=== PATIENT | male | born 1955 | race Caucasian/White ===

== ENCOUNTER 2020-01-05 07:01 | Day surgery (SDC) | payer BC, OTHER ==
[2020-01-02 15:29] LABS: Absolute Lymphocytes (CBC) 1.3 K/uL (0.7-4.9); Basophils % 0.4 % (0-1.3); Hematocrit 43.4 % (39.6-49.0); Lymphocytes % 18.8 % (15.3-44.8); MPV 8.5 fL (7.6-11.3); RBC Red Blood Cell Count 4.93 M/uL (4.33-5.43)
[2020-01-02 15:32] LABS: Protime INR 1.11
--- NOTE | 2020-01-02 15:32 | RAD REPORT ---
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 COMPARISON: CHEST SINGLE VIEW dated 07/10/2012; CHEST SINGLE VIEW dated 07/03/2012 FINDINGS: A small nodule is present in the left mid lung, measuring approximately 1 cm in new since 2012 comparative study. The lungs are clear of acute infiltrate. The heart is normal in size. No disp laced fractures. IMPRESSION: 1 cm nodule in the left mid lung is noted, new since 2012. CT chest followup is recommen ded.
[2020-01-02 15:44] LABS: Potassium 3.4 mmol/L (3.5-5.1)
[2020-01-05] MEDS ORDERED: HEPA 1000U/500MLS 2,000 UNIT/1,000 ML BAG IV ONE (07:15)
[2020-01-05] MEDS ORDERED: LIDOCAINE 1% 20 ML MDV ONE (07:15)
[2020-01-05] MEDS ORDERED: NA CHLORIDE 0.9% 500 ML ONE (07:22)
[2020-01-05] MEDS ORDERED: ATROPINE SULF 1 MG/10 ML SYR IV ONE (07:51)
[2020-01-05] MEDS ORDERED: MIDAZOLAM HCL 2 MG/2 ML INJ ONE ×2 (07:51→08:05)
[2020-01-05] MEDS ORDERED: NITROGLYCERIN 100 MCG/ML SYR (for cath lab use only) IV ONE (07:51)
[2020-01-05] MEDS ORDERED: NICARDIPINE HCL 25 MG/10 ML IV ONE (07:51)
[2020-01-05] MEDS ORDERED: HEPARIN 5000 UNIT/ML 1 ML VIAL ONE (07:51)
[2020-01-05] MEDS ORDERED: FENTANYL CITR 100 MCG/2 ML ONE (07:51)
[2020-01-05] MEDS ORDERED: NA CHLORIDE 0.9% 50 ML ONE (07:52)
[2020-01-05] MEDS ORDERED: NITROGLYCERIN/D5W 25 MG/250 ML BTL IV ONE (07:52)
[2020-01-05] MEDS ORDERED: ASPIRIN 81 MG CHEWABLE TABLET ONE (08:35)
[2020-01-05] MEDS ORDERED: PRASUGREL (EFFIENT) 10 MG TAB ONE (09:00)
[2020-01-05] MEDS ORDERED: ZOLPIDEM TARTRATE 5 MG TABLET PO PRN (09:05)
[2020-01-05] MEDS ORDERED: ACETAMINOPHEN 500 MG TAB PO PRN (09:06)
[2020-01-05] MEDS ORDERED: D50W 25 GM/50 ML SYRINGE/VIAL IV PRN (10:53)
[2020-01-05] MEDS ORDERED: GLUCAGON 1 MG/VIAL IM PRN (10:53)
[2020-01-05] MEDS: INSULIN -REGULAR HUMAN 50 UNIT/0.5 ML ML SQ SCH ×3 (11:30→21:11)
--- NOTE | 2020-01-05 12:05 | OP ---
Surgeon: Kyler Vazquez MD Identification: 64-year-old man. Primary Care Physician: Tavon Marino M.D. Procedure: Left heart catheterization with coronary angioplasty and a stent of the distal LAD for ex ercise-induced ventricular tachycardia. Procedure Findings: The patient had diffuse mild lumen irregularities throughout his coronary tree, but the distal LAD had an 80% stenosis. The left ventricular ejection fraction was normal. Left zaynab tricular end-diastolic pressure is slightly high at 19 mmHg and his systolic pressure segmental wall motion were all normal. After the stents, the 80% lesion was reduced to 0% stenosis. The stent was a 2.75 x 16 Synergy inflated to 12 atmospheres. Procedure In Detail: The patient was brought to the cardiac cleaner laboratory equipment in a fasting state, sedated wit h Versed and fentanyl, prepared and draped in usual sterile fashion. Informed consent had been obtai maria e. Right radial approach was used. 1% lidocaine was used to anesthetize the skin around the arter y. We entered the artery with a 21-gauge needle, cannulated with a 0.021 inch diameter guidewire and then placed a 5/6-[place] Terumo radial sheath. As soon as the sheath was in, the introducer and jonathan dewire were removed. We gave a radial cocktail consisting of nicardipine, heparin, and nitroglycerin . We used a TIG catheter and advanced it to the ascending aorta using a short radius J-tip Glidewire and fluoroscopy. We used a TIG catheter to angiogram right and left coronary, left ventricle. At t he end of the diagnostic procedure, decision was made to put a stent in, so we gave Angiomax, demonst rated activated clotting time of more than 400 seconds. We used an exchange length J-wire to remove the TIG catheter and advanced an XB LAD 3.5 with side holes into the ascending aorta. This engaged t he left main ostium nicely and gave us excellent support. We crossed the lesion using a [place] 0.014 inch coronary wire, advanced around the apex of the heart, staying in the LAD lumen of course. We p arked the distal tip there and were then able to advance our stent a rapid exchange type stent, a Syn ergy 2.75 mm diameter, 16 mm long. We advanced to the lesion, demonstrated its position, inflated it to 12 atmospheres, did 2 inflations. We withdrew the balloon catheter leaving the stent in place, t ook a picture. The angiographic result was excellent. No evidence of distal thrombus or dissection. We removed the wire, took pictures in orthogonal views and then removed the guide catheter. We flu shed the sheath, demonstrated good arterial waveforms when connected the sheath side port. Removed t he sheath and closed the arteriotomy using a large TR band. Estimated Blood Loss: 10 mL. Brand Representative: Claudia Kim. Complications: None. CARLOS/MEGGAN Voice ID: [id number] Report ID: [id number]
[2020-01-05 12:09] VITALS: O2SAT 99
[2020-01-05 14:09] VITALS: BMI 28.7
[2020-01-05] MEDS ORDERED: NA CHLORIDE 0.9% 1,000 ML IV SCH (15:00)
[2020-01-05] MEDS ORDERED: ATORVASTATIN 80 MG TAB PO SCH (21:00)
[2020-01-06 05:00] LABS: Hematocrit 39.3 % (39.6-49.0); MPV 8.7 fL (7.6-11.3)
[2020-01-06 05:08] LABS: BUN Blood Urea Nitrogen 15 mg/dL (7-18); Bicarbonate 29 mmol/L (21-32); Glucose Level 230 mg/dL (74-106); Potassium 3.7 mmol/L (3.5-5.1); Sodium Level 140 mmol/L (136-145)
[2020-01-06] MEDS ORDERED: METOPROLOL XL 50 MG TAB PO SCH (06:00)
[2020-01-06] MEDS: INSULIN -REGULAR HUMAN 50 UNIT/0.5 ML ML SQ SCH (08:52)
[2020-01-06] MEDS ORDERED: LOSARTAN POTASSIUM 50 MG TABLET PO SCH (09:00)
[2020-01-06] MEDS ORDERED: ASPIRIN EC 81 MG TAB PO SCH (09:00)
[2020-01-06] MEDS ORDERED: CLOPIDOGREL 75 MG TABLET PO SCH (09:00)
[2020-01-06 10:40] VITALS: BP 178/99; TEMP 97.5
--- NOTE | 2020-01-06 12:57 | PN ---
Date of Progress Note: 01/06/2020 Mr. Monreal is a 64-year-old white male, was admitted as an outpatient for a heart catheterization [facility] of abnormal stress test and ventricular tachycardia. He is a patient of Dr. Marino. Has multipl e cardiac risk factors. Dr. Vazquez did a catheterization and performed a mid LAD stent successfully yesterday. Overnight, patient has no complaint. His catheterization entry site looks great. He has no telemetry issue. No chest pain. We will send him home today on Toprol, Plavix, statin, and aspi rin and he can go home today and follow up with us in the next week or 2. We will probably do a stre ss test on him rather soon to make sure that the ventricular tachycardia is actually resolved. Other jaramillo, he may have to have an EP referral. WARREN/MEGGAN Voice ID: [id number] Report ID: [id number]
== END 2020-01-06 10:17 | disposition home or self-care (01) ==
LOC: CCL 07:01 → 2ND 12:46 → CCL 01-06 10:17
PROVIDERS: ATTEND Internal Medicine
DX: I47.2 Ventricular tachycardia (principal); I25.10 Atherosclerotic heart disease of native coronary artery without angina pectoris; I10 Essential (primary) hypertension; E78.5 Hyperlipidemia, unspecified; E11.9 Type 2 diabetes mellitus without complications; Z82.49 Family history of ischemic heart disease and other diseases of the circulatory system
CPT/HCPCS: 85025; 80048 ×2; 36415 ×2; 85610; 82947 ×5; 85347; 85730; 85027; 71046; 92928; 93458; C1893; C1725; C1877; J1644; J2250 ×2; J3010; J0583; J7040

== ENCOUNTER 2021-07-26 19:56 | Emergency (ER) | payer BC ==
--- NOTE | 2021-07-26 21:28 | ER ---
Nurse's Notes [facility] Name: Ludin Monreal Age: 65 yrs Sex: Male : 1955 Arrival Date: 07/26/2021 Time: 19:57 Bed 10 Private MD: Diagnosis: Retention of urine, unspecified-FRIEDMAN Presentation: 07/26 20:19 Chief complaint: Patient states: Pt states he has an indwelling catheter from a recent wg surgery that is supposed to be removed tomorrow. This evening it sprung a leak and needs a new leg bag to hold him over until tomorrow. No other complaints. Coronavirus screen: Vaccine status: Patient reports receiving the 2nd dose of the covid vaccine. Date February 03, 2021 At this time, the client does not indicate any symptoms associated with coronavirus-19. Ebola Screen: Patient negative for fever greater than or equal to 101.5 degrees Fahrenheit, and additional compatible Ebola Virus Disease symptoms Patient denies exposure to infectious person. Patient denies travel to an Ebola-affected area in the 21 days before illness onset. No symptoms or risks identified at this time. Initial Sepsis Screen: Does the patient meet any 2 criteria? No. Patient's initial sepsis screen is negative. Does the patient have a suspected source of infection? No. Patient's initial sepsis screen is negative. Risk Assessment: Do you want to hurt yourself or someone else? Patient reports no desire to harm self or others. Onset of symptoms was July 26, 2021 at 09:00. 20:19 Method Of Arrival: Ambulatory 20:19 Acuity: TERRY 4 wg Triage Assessment: 20:19 General: Appears in no apparent distress. comfortable, well groomed, Behavior is calm, wg cooperative, appropriate for age. Pain: Denies pain. - Immunization history:: Adult Immunizations up to date. - Social history:: Smoking status: Patient denies any tobacco usage or history of. - Family history:: not pertinent. Screenin:58 Abuse screen: Denies threats or abuse. Denies injuries from another. Nutritional bc5 screening: No deficits noted. Tuberculosis screening: No symptoms or risk factors identified. Fall Risk None identified. No fall in past 12 months (0 pts). No secondary diagnosis (0 pts). No IV (0 pts). Ambulatory Aid- None/Bed Rest/Nurse Assist (0 pts). Gait- Normal/Bed Rest/Wheelchair (0 pts) Mental Status- Oriented to own ability (0 pts). Total Scott Fall Scale indicates No Risk (0-24 pts). Vital Signs: 20:19 BP 128 / 98; Pulse 82; Resp 18; Temp 98.4; Pulse Ox 100% on R/A; Weight 90.72 kg; wg Height 5 ft. 10 in. (177.80 cm); Pain 0/10; 20:19 Body Mass Index 28.70 (90.72 kg, 177.80 cm) ED Course: 19:57 Patient arrived in ED. cf2 20:21 Triage completed. 20:22 Arm band placed on. 20:58 No provider procedures requiring assistance completed. Patient did not have IV access bc5 during this emergency room visit. 20:59 Patient has correct armband on for positive identification. Call light in reach. bc5 21:06 Frank Thompson MD is Attending Physician. [facility] 21:18 Vera Fernandes, RN is Primary Nurse. bc5 21:18 Pateint arrived with Friedman and leg bag, leg bag clamp broke and was leaking, leg bag bc5 replaced using sterile technique. 21:27 Timmy Ramsey MD is Referral Physician. [facility] Administered Medications: No medications were administered Outcome: 21:28 Discharge ordered by . [facility] 21:42 Condition: stable bc5 21:42 Discharge instructions given to patient, Instructed on discharge instructions, follow up and referral plans. 21:42 Discharged to home ambulatory. bc5 21:43 Patient left the ED. bc5 Signatures: Frank Thompson MD MD cha Frazier, Celesta 2 Kemar Benton RN Vera Fernandes, CLARY RN bc5
--- NOTE | 2021-07-26 21:28 | EDPHYS ---
Physician Documentation [facility] Name: Ludin Monreal Age: 65 yrs Sex: Male : 1955 Arrival Date: 07/26/2021 Time: 19:57 Bed 10 Private MD: ED Physician Frank Thompson HPI: 07/26 21:22 This 65 yrs old Male presents to ER via Ambulatory with complaints of Problem jose With Urinary Catheter, BAG IS LEAKING. 21:22 The patient presents with a Friedman catheter problem, NEEDS A BAG. Onset: The jose symptoms/episode began/occurred yesterday. Modifying factors: The symptoms are alleviated by nothing, the symptoms are aggravated by nothing. Associated signs and symptoms: The patient has no apparent associated signs or symptoms. The patient has not experienced similar symptoms in the past. - Immunization history:: Adult Immunizations up to date. - Social history:: Smoking status: Patient denies any tobacco usage or history of. - Family history:: not pertinent. ROS: 21:23 Constitutional: Negative for fever, chills, and weight loss, Eyes: Negative for injury, jose pain, redness, and discharge, ENT: Negative for injury, pain, and discharge, Neck: Negative for injury, pain, and swelling, Cardiovascular: Negative for chest pain, palpitations, and edema, Respiratory: Negative for shortness of breath, cough, wheezing, and pleuritic chest pain, Abdomen/GI: Negative for abdominal pain, nausea, vomiting, diarrhea, and constipation, Back: Negative for injury and pain, MS/Extremity: Negative for injury and deformity, Skin: Negative for injury, rash, and discoloration, Neuro: Negative for headache, weakness, numbness, tingling, and seizure. 21:23 : Positive for WITH FRIEDMAN, NEEDS NEW BACK. Exam: 21:23 Constitutional: This is a well developed, well nourished patient who is awake, alert, jose and in no acute distress. Head/Face: Normocephalic, atraumatic. Eyes: Pupils equal round and reactive to light, extra-ocular motions intact. Lids and lashes normal. Conjunctiva and sclera are non-icteric and not injected. Cornea within normal limits. Periorbital areas with no swelling, redness, or edema. ENT: Nares patent. No nasal discharge, no septal abnormalities noted. Tympanic membranes are normal and external auditory canals are clear. Oropharynx with no redness, swelling, or masses, exudates, or evidence of obstruction, uvula midline. Mucous membranes moist. Neck: Trachea midline, no thyromegaly or masses palpated, and no cervical lymphadenopathy. Supple, full range of motion without nuchal rigidity, or vertebral point tenderness. No Meningismus. Chest/axilla: Normal chest wall appearance and motion. Nontender with no deformity. No lesions are appreciated. Cardiovascular: Regular rate and rhythm with a normal S1 and S2. No gallops, murmurs, or rubs. Normal PMI, no JVD. No pulse deficits. Respiratory: Lungs have equal breath sounds bilaterally, clear to auscultation and percussion. No rales, rhonchi or wheezes noted. No increased work of breathing, no retractions or nasal flaring. Abdomen/GI: Soft, non-tender, with normal bowel sounds. No distension or tympany. No guarding or rebound. No evidence of tenderness throughout. Back: No spinal tenderness. No costovertebral tenderness. Full range of motion. Skin: Warm, dry with normal turgor. Normal color with no rashes, no lesions, and no evidence of cellulitis. MS/ Extremity: Pulses equal, no cyanosis. Neurovascular intact. Full, normal range of motion. Neuro: Awake and alert, GCS 15, oriented to person, place, time, and situation. Cranial nerves II-XII grossly intact. Motor strength 5/5 in all extremities. Sensory grossly intact. Cerebellar exam normal. Normal gait. Psych: Awake, alert, with orientation to person, place and time. Behavior, mood, and affect are within normal limits. 21:23 : CVA tenderness, is absent, Male external genitalia: normal, Bladder: is normal, a friedman is noted. Vital Signs: 20:19 BP 128 / 98; Pulse 82; Resp 18; Temp 98.4; Pulse Ox 100% on R/A; Weight 90.72 kg; wg Height 5 ft. 10 in. (177.80 cm); Pain 0/10; 20:19 Body Mass Index 28.70 (90.72 kg, 177.80 cm) [facility]: 21:06 Patient medically screened. [facility] 21:25 Differential diagnosis: Friedman catheter problem. Data reviewed: vital signs, nurses jose notes. 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 on room air. Counseling: I had a detailed discussion with the patient and/or guardian regarding: the historical points, exam findings, and any diagnostic results supporting the discharge/admit diagnosis, the need for outpatient follow up, for definitive care, a urologist. 07/26 21:06 Order name: Leg Bag; Complete Time: 21:43 jose Administered Medications: No medications were administered Disposition Summary: 07/26/21 21:28 Discharge Ordered Location: Home [facility] Problem: new jose Symptoms: have improved jose Condition: Stable jose Diagnosis - Retention of urine, unspecified - FRIEDMAN jose Followup: jose - With: Private Physician - When: 2 - 3 days - Reason: Recheck today's complaints, Continuance of care, Re-evaluation by your physician Followup: jose - With: Timmy Ramsey MD - When: 2 - 3 days - Reason: Recheck today's complaints, Continuance of care, Re-evaluation by your physician Discharge Instructions: - Discharge Summary Sheet jose - Indwelling Urinary Catheter Care, Adult jose - Acute Urinary Retention, Male jose - Acute Urinary Retention, Male, [id number] jose - Indwelling Urinary Catheter Care, Adult, [id number]-uw-[id number] [facility] Forms: - Medication Reconciliation Form [facility] - Thank You Letter jose - Antibiotic Education jose - Prescription Opioid Use [facility] Signatures: Frank Thompson MD MD cha Gamba, Liam, RN wg
[2021-07-27 00:14] VITALS: BP 128/98; TEMP 98.4; O2SAT 100
== END 2021-07-26 21:43 | disposition home or self-care (01) ==
LOC: ER 19:56
DX: T83.098A Other mechanical complication of other urinary catheter, initial encounter (principal)
CPT/HCPCS: 99281

== ENCOUNTER 2021-10-24 19:39 | Emergency (ER) | payer BC ==
--- OUTSIDE RECORDS SUMMARY | 2021-10-24 19:40 | XMS REPORT | Continuity of Care Document ---
:1955 Author Organization [facility] t Address [address] [place] [address] Care Team Providers Name Role Phone LISA Primary Care Physician Unavailable DARIUS Attending Clinician Unavailable DARIUS Admitting Clinician Unavailable Payers Payer Name Policy Type Policy Number Effective Date Expiration Date S gibran BCBS OS [id number] 2017 00:00:00 POS/PPO/EPO Problems This patient has no known problems. Allergies, Adverse Reactions, Alerts Allergy Allergy Status Severity Reaction(s) Onset Inactive Treating Comm ents Source Name Type Date Date Clinician NO KNOWN Allergy Active [facility] Medications This patient has no known medications. Vital Signs Vital Name Observation Time Observation Value Comments Source HEIGHT 2021-07-14 10:13:00 177.8 cm WEIGHT 2021-07-14 10:13:00 90.5 kg HEIGHT 2021-07-13 10:20:00 177.8 cm WEIGHT 2021-07-13 10:20:00 88.451 kg HEIGHT 2021-07-14 10:13:00 177.8 cm WEIGHT 2021-07-14 10:13:00 90.5 kg HEIGHT 2021-07-13 10:20:00 177.8 cm WEIGHT 2021-07-13 10:20:00 88.451 kg Procedures This patient has no known procedures. Encounters Start End Encounter Admission Attending Care Care Encounter Source Date/Time Date/Time Type Type Clinicians Facility Department ID 2021-08-14 Outpatient ZAHRAA RAMSEY Surgery [id number] [facility] 07:20:36 SHARI 2021-07-13 2021-07-13 Outpatient [facility] [id number] [facility] 00:00:00 00:00:00 Results Test Description Test Time Test Comments Results Result Sourc e Comments TISSUE EXAM 2021-07-07 Surgical Pathology Report 3 14:57:02 Case: [id number] Authorizing Provider: Shari Ramsey MD Collected: 07/14/2021 03:46 PM Ordering Location: [facility] PERIOPERATIVE Received: 07/15/2021 10:03 AM SERVICES Pathologist: Pancho Vazquez MD Specimens: A) - Soft Tissue, Other, Periprostatic fat B) - Urinary Bladder, Left bladder wall margin (suture arreola bladder side) C) - Urinary Bladder, Posterior bladder neck margin D) - Urinary Bladder, Anterior bladder neck margin E) - Prostate, PROSTATE AND SEMINAL VESICLES A. SOFT TISSUE, PERIPROSTATIC FAT: - BENIGN FIBROADIPOSE TISSUE - NO LYMPH NODE PRESENTB. URINARY BLADDER, LEFT BLADDER WALL MARGIN, EXCISION: - BENIGN PROSTATIC GLANDS AND SMOOTH MUSCLE- NEGATIVE FOR MALIGNANCYC. URINARY BLADDER, POSTERIOR BLADDER NECK MARGIN, EXCISION: - BENIGN SMOOTH MUSCLE BUNDLESD. URINARY BLADDER, ANTERIOR BLADDER NECK MARGIN, EXCISION: - BENIGN SMOOTH MUSCLE BUNDLESE. PROSTATE, ROBOTIC-ASSISTED LAPAROSCOPIC RADICAL PROSTATECTOMY: - ADENOCARCINOMA, AVERY 3+4=7, FOCAL EXTRAPROSTATIC EXTENSION, SURGICAL MARGINS NEGATIVE SEMINAL VESICLES, ROBOTIC-ASSISTED LAPAROSCOPIC RADICAL PROSTATECTOMY: - NO PATHOLOGIC DIAGNOSIS Signing Pathologist Direct Phone Line: [phone] signed by Pancho Vazquez MD on 07/28/2021 at 2:57 PMPreliminary result electronically signed by Pancho Vazquez MD on 07/18/2021 at 11:01 AMSections show a single focus of adenocarcinoma in the right peripheral zone in the apical half of the gland. The tumor shows focal extraprostatic extension in the region of the neurovascular bundle but the surgical margins and seminal vesicles are negative for tumor. PROSTATE GLAND: Radical ProstatectomyPROSTATE GLAND: RADICAL PROSTATECTOMY - E8th Edition - Protocol posted: 12/31/2019SPECIMEN Procedure: Radical prostatectomy Prostate Size: Prostate Weight (g): 35 g Prostate Greatest Dimension (Centimeters): 4.2 cm Additional Dimension (Centimeters): 3 cm Additional Dimension (Centimeters): 3 cmTUMOR Histologic Type: Acinar adenocarcinoma Histologic Grade: Grade Group and Wiggins Score: Grade group 2 (Avery Score 3 + 4 = 7) Percentage of Pattern 4: 15 % Intraductal Carcinoma (IDC): Not identified Tumor Quantitation: Estimated percentage of prostate involved by tumor: 15 % Tumor Quantitation: Greatest Dimenion of Dominant Nodule (Millimeters): 15 mm Extraprostatic Extension (EPE): Present, focal Location of Extraprostatic Extension: Right posterolateral (neurovascular bundle) Urinary Bladder Neck Invasion: Not identified Seminal Vesicle Invasion: Not identified Treatment Effect: No known presurgical therapy Lymphovascular Invasion: Not Identified Perineural Invasion: Present MARGINS Margins: Uninvolved by invasive carcinoma : Benign prostate glands present at surgical margin LYMPH NODES Regional Lymph Nodes: No lymph nodes submitted or found PATHOLOGIC STAGE CLASSIFICATION (pTNM, AJCC 8th Edition) Primary Tumor (pT): pT3a Regional Lymph Nodes (pN): pNX ADDITIONAL FINDINGS Additional Findings: High-grade prostatic intraepithelial neoplasia (PIN) Additional Findings: Nodular prostatic hyperplasia SPECIAL STUDIES Ancillary Studies: Not performed 79733 x 1, 91677 x 3, 49418Secgaxur cancerA. Soft tissue, otherB. BladderC. BladderD. BladderE. ProstateGROSS DESCRIPTION:Specimen E: Received is a radical prostatectomy specimen in formalin with the patient's name (Antonio Monreal) with accession number [id number] is a prostate with bilateral seminal vesicles and vas deferentia.The prostate weighs 35 gm and measures 3.0 cm apex to base, 4.2 cm transversely and 3.0 cm anterior to posterior. The right and left seminal vesicles measure 5.5 x 1.7 x 0.5 cm and 4.5 x 2.0 x 1.0 cm respectively. The right and left vasa deferentia measure 7.0 cm and 7.5 cm in length respectively and 0.5 cm in diameter. The capsular surface of the prostate is purple-riojas to red, dusky, and focally ragged. Ink code: Right side-inked in black, left side-inked in blue. The prostate is serially sectioned from apex to base in entirety, and the sectioning reveals pink-riojas to hinson-white, homogeneous, focally nodular prostatic parenchyma throughout. No discrete masses are identified. The sectioning of the seminal vesicles reveals a pink-riojas unremarkable cut surface.The total number of slices including seminal vesicles and vas deferentia are 10. Section code: Apical margins are submitted in cassette E1, bladder neck margins are submitted in cassette E2, and the prostate slices are submitted in cassettes E3 to E8.The right and left seminal vesicles at the base of the prostate are submitted in E9, the seminal vesicle tips along with the vas deferentia are submitted in cassette E10. SDH/ewPerformed.A. Received fresh labeled with the patient's name, accession number and "periprosthetic fat" is a 5.3 x 3.0 x 0.4 cm portion of riojas-yellow, fibrofatty adipose tissue which is entirely submitted in A1-A3.B. Received fresh labeled the patient's name, accession number and "left bladder wall margin" is a 0.9 x 0.9 x 0.2 cm riojas, cauterized soft tissue with a suture at 1 end designated as the bladder side by the surgeon. The opposing end has a riojas-pink, predominantly smooth surface. The bladder side is inked blue by the prosector. The specimen is trisected and entirely submitted in B1.C. Received fresh labeled with the patient's name, accession number and "posterior bladder neck margin" are 2 fragments of riojas, cauterized tissue ranging from 1.0-1.3 cm in greatest dimension. The specimen is submitted in toto in C1.D. Received fresh labeled the patient's name, accession number and "anterior bladder neck margin" is a 0.7 x 0.3 x 0.3 cm riojas, cauterized soft tissue which is submitted in toto in D1.PA BASIC METABOLIC PANEL 2021-07-15 16:37:00 Test Item Value Reference Range Interpretation Comme nts SODIUM (BEAKER) (test code 140 meq/L 136-145 = 381) POTASSIUM (BEAKER) (test 5.7 meq/L 3.5-5.1 H code = 379) CHLORIDE (BEAKER) (test 112 meq/L 98-107 H code = 382) CO2 (BEAKER) (test code = 26 meq/L 22-29 355) BLOOD UREA NITROGEN 11 mg/dL 7-21 (BEAKER) (test code = 354) CREATININE (BEAKER) (test 0.73 mg/dL 0.57-1.25 code = 358) GLUCOSE RANDOM (BEAKER) 96 mg/dL 70-105 (test code = 652) CALCIUM (BEAKER) (test 7.1 mg/dL 8.4-10.2 L code = 697) EGFR (BEAKER) (test code = 108 mL/min/1.73 sq m ESTIMATED GFR IS NOT 1092) ACCURATE CRE ATININE CLEARANCE IN MA EDICTING GLOMERULAR FILT RATION RATE. ESTIMATED GFR IS NOT APPLICABLE FOR DIALYSIS PATIENTS. Therapist Rrt ID - [id number] [id number] 16:36:00 Test Item Value Reference Range Interpretation Comments POC-GLUCOSE METER 105 mg/dL 70-110 : TESTED A T [facility] 6720 (BEAKER) (test code = [facility], 1538) 14851: Therapist Rrt/Techni isabel ID = [id number] for MARY ESTRADA POCT-GLUCOSE [id number] 12:54:00 Test Item Value Reference Range Interpretation Comments POC-GLUCOSE METER 240 mg/dL 70-110 H : TESTED A T [facility] 6720 (BEAKER) (test code = [facility], 1538) [id number]: Therapist Rrt/Techni isabel ID = [id number] for MARY ESTRADA BASIC METABOLIC [id number] 05:30:00 Test Item Value Reference Range Interpretation Comments SODIUM (BEAKER) 139 meq/L 136-145 (test code = 381) POTASSIUM (BEAKER) 3.3 meq/L 3.5-5.1 L (test code = 379) CHLORIDE (BEAKER) 103 meq/L 98-107 (test code = 382) CO2 (BEAKER) (test 27 meq/L 22-29 code = 355) BLOOD UREA NITROGEN 13 mg/dL 7-21 (BEAKER) (test code = 354) CREATININE (BEAKER) 0.83 mg/dL 0.57-1.25 (test code = 358) GLUCOSE RANDOM 168 mg/dL 70-105 H (BEAKER) (test code = 652) CALCIUM (BEAKER) 8.4 mg/dL 8.4-10.2 (test code = 697) EGFR (BEAKER) (test 93 mL/min/1.73 ESTIMA COLLINS GFR IS code = 1092) sq m NOT ACCURATE CREATININE CLEARANCE IN PREDICTING GLOMERULAR FILTRATION RATE . ESTIMATED GFR I S NOT APPLICABLE FOR DIALYSIS PATIEN TS. Therapist Rrt ID - PIAYA LPOCT-GLUCOSE [id number] 04:57:00 Test Item Value Reference Range Interpretation Comments POC-GLUCOSE METER 142 mg/dL 70-110 H : TESTED A T [facility] 6720 (BEAKER) (test code = [facility], 1538) [id number]: Therapist Rrt/Techni isabel ID = [id number] for MABEL MONTAÑO HEMOGLOBIN AND [id number] 04:52:00 Test Item Value Reference Range Interpretation Comments HEMOGLOBIN (BEAKER) (test code = 12.6 GM/DL 13.7-17.5 L 410) HEMATOCRIT (BEAKER) (test code = 37.3 % 40.1-51.0 L 411) Therapist Rrt ID - [id number] [id number] 02:36:00 Test Item Value Reference Range Interpretation Comments POC-GLUCOSE METER 189 mg/dL 70-110 H : [facility] (BEAKER) (test code = [facility], 1538) [id number]: Therapist Rrt/Techni isabel ID = [id number] for Natasha Marshall BASIC METABOLIC [id number] 20:53:00 Test Item Value Reference Range Interpretation Comments SODIUM (BEAKER) 138 meq/L 136-145 (test code = 381) POTASSIUM (BEAKER) 2.4 meq/L 3.5-5.1 LL (test code = 379) CHLORIDE (BEAKER) 111 meq/L 98-107 H (test code = 382) CO2 (BEAKER) (test 17 meq/L 22-29 L code = 355) BLOOD UREA NITROGEN 12 mg/dL 7-21 (BEAKER) (test code = 354) CREATININE (BEAKER) 0.72 mg/dL 0.57-1.25 (test code = 358) GLUCOSE RANDOM 175 mg/dL 70-105 H (BEAKER) (test code = 652) CALCIUM (BEAKER) 6.4 mg/dL 8.4-10.2 L (test code = 697) EGFR (BEAKER) (test 110 mL/min/1.73 ESTIM ATED GFR IS code = 1092) sq m NOT ACCURATE CREATININE CLEARANCE IN PREDICTING GLOMERULAR FILTRATION RATE . ESTIMATED GFR I S NOT APPLICABLE FOR DIALYSIS PATIEN TS. Therapist Rrt ID - [id number] AND [id number] 20:37:00 Test Item Value Reference Range Interpretation Comments HEMOGLOBIN (BEAKER) (test code = 12.0 GM/DL 13.7-17.5 L 410) HEMATOCRIT (BEAKER) (test code = 35.0 % 40.1-51.0 L 411) Therapist Rrt ID - [id number] [id number] 11:14:00 Test Item Value Reference Range Interpretation Comments POC-GLUCOSE METER 150 mg/dL 70-110 H : TESTED A T [facility] 6720 ([facility]) (test code = [facility], 1538) [id number]: Therapist Rrt/Techni isabel ID = [id number] for CATIA COMBS
[2021-10-24 20:20] LABS: Urine Blood Trace-intact (Negative); Urine Glucose 3+ (Negative); Urine Protein 1+ (Negative)
[2021-10-24 20:29] LABS: Absolute Lymphocytes (CBC) 1.2 K/uL (0.7-4.9); Basophils % 0.4 % (0-1.3); Hematocrit 44.4 % (39.6-49.0); Lymphocytes % 17.2 % (15.3-44.8); MPV 8.1 fL (7.6-11.3); RBC Red Blood Cell Count 5.15 M/uL (4.33-5.43)
[2021-10-24 20:30] LABS: Protime INR 1.09
[2021-10-24 20:52] LABS: ALT/SGPT 80 U/L (12-78); AST/SGOT 37 U/L (15-37); Albumin 3.9 g/dL (3.4-5.0); Alkaline Phosphatase 83 U/L (45-117); BUN Blood Urea Nitrogen 8 mg/dL (7-18); Bicarbonate 28 mmol/L (21-32); Bilirubin Direct 0.1 mg/dL (0-0.2); Bilirubin Total 0.4 mg/dL (0.2-1.0); Glucose Level 198 mg/dL (74-106); Magnesium 2.2 mg/dL (1.8-2.4); NT PRO-BNP 60 pg/mL (<125); Potassium 3.1 mmol/L (3.5-5.1); Protein, Total 7.6 g/dL (6.4-8.2); Sodium Level 138 mmol/L (136-145); Troponin (Emerg Dept Use Only) < 0.02 ng/mL (0.0-0.045)
--- NOTE | 2021-10-24 21:45 | RAD REPORT ---
EXAM DESCRIPTION: RAD - Chest Single View - 10/24/2021 8:36 pm CLINICAL HISTORY: Fatigue COMPARISON: December 2019 TECHNIQUE: AP portable chest image was obtained 10/24/2021 8:36 pm . FINDINGS: Lungs are clear. Heart and vasculature are normal. No measurable pleural effusion and no p neumothorax. No acute bony abnormality seen. No acute aortic findings suspected. IMPRESSION: No acute cardiopulmonary process. No significant change from comparison study.
--- NOTE | 2021-10-24 22:39 | ER ---
Nurse's Notes [facility] Name: Ludin Monreal Age: 66 yrs Sex: Male : 1955 Arrival Date: 10/24/2021 Time: 19:41 Bed 17 Private MD: Diagnosis: Other malaise and fatigue;Essential (primary) hypertension Presentation: 10/24 19:41 Chief complaint: EMS states: pt has been feeling weak/fatigued for the past 3-4 weeks sm5 on and off, took bp at work tonight and it was high. also states his normal HR is in the 40's-50's and the past few weeks it's been in the 80's-90's. Coronavirus screen: Vaccine status: Patient reports receiving the 2nd dose of the covid vaccine. Ebola Screen: No symptoms or risks identified at this time. Initial Sepsis Screen: Does the patient meet any 2 criteria? No. Patient's initial sepsis screen is negative. Does the patient have a suspected source of infection? No. Patient's initial sepsis screen is negative. Risk Assessment: Do you want to hurt yourself or someone else? Patient reports no desire to harm self or others. Onset of symptoms was October 10, 2021. 19:41 Method Of Arrival: EMS: [facility] [place] [address] 19:41 Acuity: TERRY 3 sm5 Triage Assessment: 19:47 General: Appears in no apparent distress. Behavior is calm, cooperative. Pain: Denies sm5 pain. Neuro: No deficits noted. Level of Consciousness is awake, alert, Oriented to person, place, time, situation. Cardiovascular: Reports fatigue, Capillary refill < 3 seconds Patient's skin is warm and dry. Respiratory: No deficits noted. Airway is patent Trachea midline Respiratory effort is even, unlabored. GI: No deficits noted. : No deficits noted. Historical: - Allergies: 19:44 No Known Allergies; sm5 - PMHx: 19:44 Hypertensive disorder; prostate cancer; Diabetes mellitus; Hypercholesterolemia; sm5 - PSHx: 19:44 Prostatectomy; Stented artery; sm5 - Immunization history:: Client reports receiving the 2nd dose of the Covid vaccine. - Social history:: Smoking status: . Screenin:46 Abuse screen: Denies threats or abuse. Denies injuries from another. Nutritional sm5 screening: No deficits noted. Tuberculosis screening: No symptoms or risk factors identified. Fall Risk No fall in past 12 months (0 pts). No secondary diagnosis (0 pts). IV access (20 points). Ambulatory Aid- None/Bed Rest/Nurse Assist (0 pts). Gait- Normal/Bed Rest/Wheelchair (0 pts) Mental Status- Oriented to own ability (0 pts). Total Scott Fall Scale indicates No Risk (0-24 pts). Assessment: 20:30 Reassessment: see triage assessment. [facility] 21:30 Reassessment: No changes from previously documented assessment. Patient and/or family [facility] updated on plan of care and expected duration. Pain level reassessed. 22:30 Reassessment: No changes from previously documented assessment. [facility] Vital Signs: 19:41 BP 170 / 94; Pulse 88; Resp 19; Temp 98.2(O); Pulse Ox 97% on R/A; Weight 90.72 kg; 5 Height 5 ft. 10 in. (177.80 cm); 21:17 BP 142 / 95; Pulse 84; Resp 18; Pulse Ox 96% on R/A; 5 22:00 BP 142 / 93; Pulse 88; Resp 19; Pulse Ox 100% on R/A; sm5 19:41 Body Mass Index 28.70 (90.72 kg, 177.80 cm) [facility] ED Course: 19:41 Patient arrived in ED. 5 19:42 Ashish Almendarez NP is PHCP. pm1 19:42 Solomon Gudino MD is Attending Physician. pm1 19:43 Triage completed. 5 19:46 Arm band placed on right wrist. sm5 19:46 Patient has correct armband on for positive identification. Bed in low position. Call [facility] light in reach. Side rails up X2. 20:00 Taylor Phan, CLARY is Primary Nurse. 5 20:21 Basic Metabolic Panel Sent. 5 20:21 CBC with Diff Sent. 5 20:21 LFT's Sent. sm5 20:22 Magnesium Sent. 5 20:22 NT PRO-BNP Sent. 5 20:22 PT-INR Sent. 5 20:22 Troponin (emerg Dept Use Only) Sent. 5 20:22 Maintain EMS IV. Dressing intact. Good blood return noted. Site clean \T\ dry. Gauge \T\ sm 5 site: 20 R AC. 20:36 XRAY Chest (1 view) In Process Unspecified. EDMS 22:52 No provider procedures requiring assistance completed. IV discontinued, intact, sm5 bleeding controlled, No redness/swelling at site. Pressure dressing applied. Administered Medications: No medications were administered Outcome: 22:38 Discharge ordered by MD. pm1 22:52 Discharged to home ambulatory, with family. 5 22:52 Condition: good 22:52 Discharge instructions given to patient, family, Instructed on discharge instructions, follow up and referral plans. Demonstrated understanding of instructions, follow-up care. 22:52 Patient left the ED. 5 Signatures: Dispatcher [employer] EDOH Ashish Almendarez NP DOOR CAPTAIN pm1 Taylor Phan RN RN sm5 Corrections: (The following items were deleted from the chart) 22:51 22:50 Reassessment: [place] [id number]
--- NOTE | 2021-10-24 22:40 | EDPHYS ---
Physician Documentation [facility] Name: Ludin Monreal Age: 66 yrs Sex: Male : 1955 Arrival Date: 10/24/2021 Time: 19:41 Bed 17 Private MD: ED Physician Solomon Guidno HPI: 10/24 20:03 This 66 yrs old Male presents to ER via EMS with complaints of hypertension. pm1 20:03 Hypertension. Onset: The symptoms/episode began/occurred 3 week(s) ago. Severity of pm1 symptoms: in the emergency department the symptoms Hypertension higher today than the previous 3 weeks of elevation. Patient sent his work when blood pressure was found to be high. Patient has been complaining of generalized fatigue for the past 3 weeks along with elevated blood pressure. Patient does report a blood pressure was higher today and previous few weeks. Negative for chest pain, shortness of breath, headache, dizziness. Historical: - Allergies: 19:44 No Known Allergies; sm5 - PMHx: 19:44 Hypertensive disorder; prostate cancer; Diabetes mellitus; Hypercholesterolemia; sm5 - PSHx: 19:44 Prostatectomy; Stented artery; sm5 - Immunization history:: Client reports receiving the 2nd dose of the Covid vaccine. - Social history:: Smoking status: . ROS: 20:03 Eyes: Negative for injury, pain, redness, and discharge, ENT: Negative for injury, pm1 pain, and discharge, Cardiovascular: Negative for chest pain, palpitations, and edema, Respiratory: Negative for shortness of breath, cough, wheezing, and pleuritic chest pain, Abdomen/GI: Negative for abdominal pain, nausea, vomiting, diarrhea, and constipation, Back: Negative for injury and pain, MS/Extremity: Negative for injury and deformity, Skin: Negative for injury, rash, and discoloration, Neuro: Negative for headache, weakness, numbness, tingling, and seizure. 20:03 Constitutional: Positive for fatigue, malaise, Negative for body aches, poor PO intake. 20:03 All other systems are negative. Exam: 20:03 Constitutional: This is a well developed, well nourished patient who is awake, alert, pm1 and in no acute distress. Head/Face: Normocephalic, atraumatic. 20:03 Skin: Warm, dry with normal turgor. Normal color with no rashes, no lesions, and no evidence of cellulitis. MS/ Extremity: Pulses equal, no cyanosis. Neurovascular intact. Full, normal range of motion. 20:03 Eyes: Exam is negative for acute changes, Extraocular movements: no acute changes, Conjunctiva: no acute changes, no injection, Sclera: no acute changes, icterus, is not appreciated. 20:03 ENT: Exam is negative for acute changes, External ear(s): are unremarkable, Ear canal(s): are normal, TM's: are normal, Mouth: no acute changes, Lips: normal, moist, Oral mucosa: normal, pink and intact, moist. 20:03 Cardiovascular: Exam negative for acute changes, Rate: normal, Rhythm: regular, Pulses: no pulse deficits are appreciated, Heart sounds: normal. 20:03 Respiratory: Exam negative for acute changes, respiratory distress, shortness of breath, Breath sounds: are clear throughout. 20:03 Abdomen/GI: Inspection: abdomen appears normal, Palpation: abdomen is soft and non-tender, in all quadrants. 20:03 Neuro: Exam negative for acute changes, Orientation: is normal, Mentation: is normal, Motor: is normal, moves all fours. Vital Signs: 19:41 BP 170 / 94; Pulse 88; Resp 19; Temp 98.2(O); Pulse Ox 97% on R/A; Weight 90.72 kg; 5 Height 5 ft. 10 in. (177.80 cm); 21:17 BP 142 / 95; Pulse 84; Resp 18; Pulse Ox 96% on R/A; 5 22:00 BP 142 / 93; Pulse 88; Resp 19; Pulse Ox 100% on R/A; 5 19:41 Body Mass Index 28.70 (90.72 kg, 177.80 cm) [facility] MDM: 19:42 Patient medically screened. pm1 22:37 Data reviewed: vital signs. Data interpreted: Pulse oximetry: on room air is 96 %. pm1 Interpretation: normal. 22:37 Counseling: I had a detailed discussion with the patient and/or guardian regarding: the pm1 historical points, exam findings, and any diagnostic results supporting the discharge/admit diagnosis, lab results, radiology results, the need for outpatient follow up, to return to the emergency department if symptoms worsen or persist or if there are any questions or concerns that arise at home. 10/24 19:53 Order name: Basic Metabolic Panel; Complete Time: 21:02 pm1 10/24 19:53 Order name: CBC with Diff; Complete Time: 20:34 pm1 10/24 19:53 Order name: LFT's; Complete Time: 21:02 pm1 10/24 19:53 Order name: Magnesium; Complete Time: 21:02 pm1 10/24 19:53 Order name: NT PRO-BNP; Complete Time: 21:02 pm1 10/24 19:53 Order name: PT-INR; Complete Time: 20:47 pm1 10/24 19:53 Order name: Troponin (emerg Dept Use Only); Complete Time: 21:02 pm1 10/24 19:53 Order name: XRAY Chest (1 view); Complete Time: 22:24 pm1 10/24 19:53 Order name: EKG; Complete Time: 19:55 pm1 10/24 19:53 Order name: Cardiac monitoring; Complete Time: 20:21 pm1 10/24 19:53 Order name: EKG - Nurse/Tech; Complete Time: 20:19 pm1 10/24 19:53 Order name: IV Saline Lock; Complete Time: 20:19 pm1 10/24 19:53 Order name: Labs collected and sent; Complete Time: 20:19 pm1 10/24 20:20 Order name: Urine Dipstick-Ancillary; Complete Time: 20:34 EDMS 10/24 19:53 Order name: O2 Per Protocol; Complete Time: 20:19 pm1 10/24 19:53 Order name: O2 Sat Monitoring; Complete Time: 20:21 pm1 Administered Medications: No medications were administered Disposition: 10/25 00:00 Co-signature as Attending Physician, Solomon Gudino MD I agree with the assessment and kdr plan of care. Disposition Summary: 10/24/21 22:38 Discharge Ordered Location: Home pm1 Problem: new pm1 Symptoms: have improved pm1 Condition: Stable pm1 Diagnosis - Other malaise and fatigue pm1 - Essential (primary) hypertension pm1 Followup: pm1 - With: Emergency Department - When: As needed - Reason: Worsening of condition Followup: pm1 - With: Private Physician - When: 2 - 3 days - Reason: Recheck today's complaints, Continuance of care, Re-evaluation by your physician Discharge Instructions: - Discharge Summary Sheet pm1 - Hypertension, Adult pm1 - Fatigue pm1 - How to Take Your Blood Pressure, Wmem-an-Vwhk pm1 - DASH Eating Plan pm1 - Managing Your Hypertension pm1 Forms: - Medication Reconciliation Form pm1 - Thank You Letter pm1 - Antibiotic Education pm1 - Prescription Opioid Use pm1 - Work release form sm5 Signatures: Dispatcher [employer] EDMS Solomon Gudino MD MD kdr Marinas, Patrick, NP [employer] pm1 Taylor Phan, RN RN sm5
[2021-10-24 22:57] VITALS: TEMP 98.2
[2021-10-24 22:59] VITALS: BP 142/93; O2SAT 100
--- NOTE | 2021-10-25 07:35 | EKG ---
Test Date: 2021-10-24 Test Time: 20:12:49 Meat Trimmer: GILBERTO MEASUREMENT RESULTS: Intervals: Rate: 88 DC: 170 QRSD: 102 QT: 374 QTc: 452 Banner: P: 28 DC: 170 QRS: 17 T: 29 INTERPRETIVE STATEMENTS: Normal sinus rhythm Normal ECG Compared to ECG 07/10/2012 03:12:10 ST (T wave) deviation no longer present Possible ischemia no longer present Electronically Signed On 10-25-21 07:34:16 GLASS FURNACE TENDER by Mukesh Ferrara
== END 2021-10-24 22:52 | disposition home or self-care (01) ==
LOC: ER 19:39
DX: I10 Essential (primary) hypertension (principal); R53.81 Other malaise
CPT/HCPCS: 36415; 71045; 80048; 80076; 81003; 83735; 83880; 84484; 85025; 85610; 93005; 99283

== ENCOUNTER 2024-03-03 08:24 | Inpatient (IN) | payer OTHER, MEDICARE ==
[2024-03-03] MEDS ORDERED: AMIODARONE IN DEXTROSE,ISO-OSM 360 MG/200 ML BAG IV ONE (08:33)
[2024-03-03] MEDS ORDERED: MAGNESIUM SULFATE 1 gm IVPB 1 GM/100 ML BAG IV ONE (08:44)
--- NOTE | 2024-03-03 08:54 | EDPHYS ---
Physician Documentation [facility] Name: Ludin Monreal Age: 68 yrs Sex: Male : 1955 Arrival Date: 03/03/2024 Time: 08:24 Bed 7 Private MD: ED Physician Louis Elliott HPI: 03/03 08:48 This 68 yrs old Male presents to ER via EMS with complaints of palpitations. rn 08:48 The patient presents with a history of irregular heart beat, heart racing. Onset: The rn symptoms/episode began/occurred just prior to arrival. Modifying factors: The symptoms are aggravated by nothing. The symptoms are alleviated by nothing. Severity of symptoms: At their worst the symptoms were moderate in the emergency department the symptoms. The patient has not experienced similar symptoms in the past. The patient has been recently seen by a physician:. Patient sent over from Dr. Jean's office for episode of ventricular tachycardia during stress test. Patient was walking for stress test when started to feel palpitations, noted to be in ventricular tachycardia, loaded with amiodarone and 911 called. No shocks delivered. Patient feels better. Denies any recent chest pain but does report exertional dyspnea.. Historical: - Allergies: 08:41 No Known Allergies; kc6 - PMHx: 08:41 diabetes mellitus; Hypercholesterolemia; Hypertensive disorder; Prostate Cancer; kc6 Myocardial infarction; 08:41 Atrial fibrillation; kc6 - PSHx: 08:41 prostatectomy; Stented artery; kc6 - Immunization history:: Adult Immunizations up to date. - Infectious Disease History:: Denies. - Social history:: Smoking status: Patient denies any tobacco usage or history of. - Family history:: not pertinent. - Hospitalizations: : No recent hospitalization is reported. ROS: 08:48 Constitutional: Negative for fever, chills, and weight loss, Cardiovascular: Negative rn for chest pain positive for palpitations Respiratory: Positive for exertional dyspnea Abdomen/GI: Negative for abdominal pain, nausea, vomiting, diarrhea, and constipation, MS/Extremity: Negative for injury and deformity, Skin: Negative for injury, rash, and discoloration, Neuro: Negative for headache, weakness, numbness, tingling, and seizure, Exam: 08:48 Constitutional: This is a well developed, well nourished patient who is awake, alert, rn and in no acute distress. Cardiovascular: Regular rate, irregular rhythm. Respiratory: No increased work of breathing, no retractions or nasal flaring. Skin: Warm, dry MS/ Extremity: Pulses equal, no cyanosis. Neuro: Awake and alert, GCS 15 08:57 ECG was reviewed by the Attending Physician. rn Vital Signs: 08:40 BP 159 / 92; Pulse 106; Resp 18 S; Pulse Ox 98% on 2 lpm NC; Weight 90.26 kg (R); kc6 Height 5 ft. 9 in. (R); 09:05 BP 153 / 93; Pulse 112; Resp 16 S; Temp 98.2(TE); Pulse Ox 98% on R/A; Pain 0/10; kc6 09:22 BP 154 / 98; Pulse 120; Resp 15 S; Pulse Ox 97% on R/A; kc6 08:40 Body Mass Index 29.39 (90.26 kg, 175.26 cm) kc6 09:05 Pain Scale: Adult kc6 MDM: 08:33 Patient medically screened. rn 08:48 Differential diagnosis: arrythmia, dehydration, stress disorder. Data reviewed: vital rn signs, nurses notes. Management of patient was discussed with the following: Sheet Turner: Dr. Sánchez, saw patient here in ER upon arrival, states that the hospital was told him unable to perform cath here due to power issues and Exhibit Preparator not available. He recommends transferring for higher level of care. Once amiodarone continued.. Counseling: I had a detailed discussion with the patient and/or guardian regarding the historical points, exam findings, and any diagnostic results supporting the discharge/admit diagnosis, the need for further work-up and treatment in the hospital, the need to transfer to another facility, for higher level of care. 09:10 ED course: Dr. Sánchez called back and stated able to catheter, Exhibit Preparator is already rn calling for patient. Updated patient and canceled transfer at this time.. 09:10 ED course: I personally spent 35 minutes engaged in work directly related to the rn individual patient's care. This does not include any time spent performing procedures. The patient has been deemed critically ill because of unstable angina and ventricular tachycardia requiring amiodarone drip and emergent cath.. 03/03 08:34 Order name: Basic Metabolic Panel; Complete Time: 09:22 rn 03/03 08:34 Order name: CBC with Diff; Complete Time: 09:22 rn 03/03 08:34 Order name: NT PRO-BNP; Complete Time: 09:22 rn 03/03 08:34 Order name: PT-INR; Complete Time: 09:22 rn 03/03 08:34 Order name: Troponin HS; Complete Time: 09:22 rn 03/03 08:34 Order name: Cardiac monitoring; Complete Time: 08:39 rn 03/03 08:34 Order name: EKG - Nurse/Tech; Complete Time: 08:39 rn 03/03 08:34 Order name: IV Saline Lock; Complete Time: 08:39 rn 03/03 08:34 Order name: Labs collected and sent; Complete Time: 08:55 rn 03/03 08:34 Order name: O2 Per Protocol; Complete Time: 08:40 rn 03/03 08:34 Order name: O2 Sat Monitoring; Complete Time: 08:40 rn EC:57 Rate is 104 beats/min. Rhythm is irregularly irregular. QRS [place] is Normal. NV interval rn is normal. QRS interval is normal. QT interval is normal. T waves are Normal. No ST changes noted. Clinical impression: Sinus tachycardia and with PVCs. Interpreted by me. Reviewed by me. Administered Medications: 08:55 Drug: amiodarone IVPB 900 mg, D5W IV 500 ml IVPB at 1 mg/min continuous; for 6 hrs, kc6 then change to 0.5 mg/min Route: IVPB; Rate: 1 mg/min; Site: right antecubital; 09:21 Follow up: Response: No adverse reaction; IV Status: Infusion continued upon admission kc6 08:55 Drug: Magnesium Sulfate IVPB 1 grams IVPB once over 1 hrs Route: IVPB; Infused Over: 1 kc6 hrs; Site: right hand; 09:21 Follow up: Response: No adverse reaction; IV Status: Infusion continued upon admission; kc6 IV Intake: 100ml Disposition Summary: 03/03/24 09:15 Hospitalization Ordered Notes: Hospitalization Status: Inpatient Admission rn Provider: Mervat Ruiz rn Location: Telemetry/MedSurg (Inpatient) rn Condition: Stable(03/03/24 09:15) rn Problem: new(03/03/24 09:15) rn Symptoms: have improved(03/03/24 09:15) rn Bed/Room Type: Standard rn Room Assignment: rn Diagnosis - Ventricular tachycardia(03/03/24 09:15) rn - Unstable angina rn Forms: - Medication Reconciliation Form rn - SBAR form rn - Leadership Thank You Letter furniture repair technician time excluding procedures: 09:10 Critical care time: Bedside Care: 25 minutes, Consultation: 10 minutes. Total time: 35 rn minutes Signatures: Dispatcher [employer] EDLouis Castellano MD MD rn Campbell, Kaitlyn, RN RN kc6 Corrections: (The following items were deleted from the chart) 09: 08:54 rn rn 09: 08:54 [facility] rn rn 09: 08:54 Higher level of care rn rn 09: 08:54 Stable rn rn 09:12 08:54 new rn rn 09:12 08:54 have improved rn rn 09:12 08:54 Ventricular tachycardia rn rn
--- NOTE | 2024-03-03 08:54 | ER ---
Nurse's Notes [facility] Name: Ludin Monreal Age: 68 yrs Sex: Male : 1955 Arrival Date: 03/03/2024 Time: 08:24 Bed 7 Private MD: Diagnosis: Ventricular tachycardia;Unstable angina Presentation: 03/03 08:40 Chief complaint: EMS states: pt was at Dr. Sánchez's office for a routine stress test kc6 when he went into [place] [id number]. pt reports feeling unwell at that time and couldn't continue with the test. pt was administered Amio per protocol at the office where he then converted into an irregular rhythm and was brought here. Coronavirus screen: At this time, the client does not indicate any symptoms associated with coronavirus-19. Ebola Screen: No symptoms or risks identified at this time. Initial Sepsis Screen: Does the patient meet any 2 criteria? HR > 90 bpm. No. Patient's initial sepsis screen is negative. Does the patient have a suspected source of infection? No. Patient's initial sepsis screen is negative. Risk Assessment: Do you want to hurt yourself or someone else? Patient reports no desire to harm self or others. Onset of symptoms was March 03, 2024. 08:40 Method Of Arrival: EMS: [facility] kc6 08:40 Acuity: TERRY 2 6 08:40 Care prior to arrival: IV initiated. 18 GA, in the right hand. kc6 Historical: - Allergies: 08:41 No Known Allergies; kc6 - PMHx: 08:41 diabetes mellitus; Hypercholesterolemia; Hypertensive disorder; Prostate Cancer; kc6 Myocardial infarction; 08:41 Atrial fibrillation; kc6 - PSHx: 08:41 prostatectomy; Stented artery; kc6 - Immunization history:: Adult Immunizations up to date. - Infectious Disease History:: Denies. - Social history:: Smoking status: Patient denies any tobacco usage or history of. - Family history:: not pertinent. - Hospitalizations: : No recent hospitalization is reported. Screenin:00 [facility] ED Fall Risk Assessment (Adult) History of falling in the last 3 months, kc6 including since admission No falls in past 3 months (0 pts) Confusion or Disorientation No (0 pts) Intoxicated or Sedated No (0 pts) Impaired Gait No (0 pts) Mobility Assist Device Used No (0 pt) Altered Elimination No (0 pt) Score/Fall Risk Level 0 - 2 = Low Risk. Abuse screen: Denies threats or abuse. Denies injuries from another. Nutritional screening: No deficits noted. Tuberculosis screening: No symptoms or risk factors identified. Assessment: 09:00 General: Appears in no apparent distress. comfortable, well groomed, well developed, [facility] Behavior is cooperative, anxious. Pain: Denies pain. Neuro: Level of Consciousness is awake, alert, obeys commands, Oriented to person, place, time, situation, Appropriate for age. Cardiovascular: Denies chest pain, lightheadedness, palpitations, Heart tones S1 S2 present Capillary refill < 3 seconds Rhythm is irregular. Respiratory: Airway is patent Trachea midline Respiratory effort is even, unlabored, Respiratory pattern is regular, symmetrical. GI: No signs and/or symptoms were reported involving the gastrointestinal system. : No signs and/or symptoms were reported regarding the genitourinary system. EENT: No signs and/or symptoms were reported regarding the EENT system. Derm: No signs and/or symptoms reported regarding the dermatologic system. Skin is intact, is healthy with good turgor, Skin is pink, warm \T\ dry. Musculoskeletal: No signs and/or symptoms reported regarding the musculoskeletal system. Circulation, motion, and sensation intact. Capillary refill < 3 seconds, Range of motion: intact in all extremities. 09:21 Reassessment: laborer pole crew nurses at bedside speaking with pt regarding procedure and going [facility] over consent. 09:39 Reassessment: pt to laborer pole crew via stretcher with laborer pole crew nurses and . [facility] Vital Signs: 08:40 BP 159 / 92; Pulse 106; Resp 18 S; Pulse Ox 98% on 2 lpm NC; Weight 90.26 kg (R); [facility] Height 5 ft. 9 in. (R); 09:05 BP 153 / 93; Pulse 112; Resp 16 S; Temp 98.2(TE); Pulse Ox 98% on R/A; Pain 0/10; [facility] 09:22 BP 154 / 98; Pulse 120; Resp 15 S; Pulse Ox 97% on R/A; [facility] 08:40 Body Mass Index 29.39 (90.26 kg, 175.26 cm) [facility] 09:05 Pain Scale: Adult kc6 ED Course: 08:29 Patient arrived in ED. ph 08:33 Louis Elliott MD is Attending Physician. rn 08:39 Gila Zazueta RN is Primary Nurse. kc6 08:40 EKG completed in triage. Results shown to MD. kc6 08:41 Triage completed. kc6 08:41 Arm band placed on. kc6 08:55 Maintain EMS IV. Dressing intact. Good blood return noted. Site clean \T\ dry. Gauge \T\ lisette 6 site: 18G RHAND. Inserted saline lock: 18 gauge in right antecubital area, using aseptic technique. Blood collected. 09:00 Patient has correct armband on for positive identification. Placed in gown. Bed in low kc6 position. Call light in reach. Side rails up X 1. Adult w/ patient. Client placed on continuous cardiac and pulse oximetry monitoring. NIBP monitoring applied. alarm security or surveillance monitor on. Door closed. Noise minimized. Visitors limited. Lights dimmed. Warm blanket given. Pillow given. 09:02 initiated transfer to [facility]. bd 09:[address] Elliott,pt will go to laborer pole crew here at [facility]. bd 09:12 Mervat Ruiz MD is Hospitalizing Provider. rn 09:39 No provider procedures requiring assistance completed. Patient admitted, IV remains in kc6 place. 09:40 Provided Education on: Procedure Consent. kc6 Administered Medications: 08:55 Drug: amiodarone IVPB 900 mg, D5W IV 500 ml IVPB at 1 mg/min continuous; for 6 hrs, kc6 then change to 0.5 mg/min Route: IVPB; Rate: 1 mg/min; Site: right antecubital; 09:21 Follow up: Response: No adverse reaction; IV Status: Infusion continued upon admission kc6 08:55 Drug: Magnesium Sulfate IVPB 1 grams IVPB once over 1 hrs Route: IVPB; Infused Over: 1 kc6 hrs; Site: right hand; 09:21 Follow up: Response: No adverse reaction; IV Status: Infusion continued upon admission; kc6 IV Intake: 100ml Medication: 09:40 VIS not applicable for this client. kc6 Intake: 09:21 IV: 100ml; Total: 100ml. kc Outcome: 08:54 ER care complete, transfer ordered by . rn 09:15 Decision to Hospitalize by Provider. rn 09:39 Admitted to Mid Level Practitioner accompanied by nurse, family with patient, via stretcher, on kc6 monitor, with chart, :39 Condition: stable 09:39 Instructed on the need for admit, 09:40 Patient left the ED. kc6 Signatures: hSaunna Buck Roman, MD MD rn Cesar, CLARY Marie RN Gila Marti RN RN kc6 Corrections: (The following items were deleted from the chart) :04 08:40 Chief complaint: EMS states: pt was at Dr. Sánchez's office for a routine stress kc6 test when he went into [facility] x2. pt was administered Amio per protocol at the office. kc6
[2024-03-03 09:02] LABS: Absolute Eosinophils 0.1 K/uL (0-0.5); Absolute Lymphocytes (CBC) 1.4 K/uL (0.7-4.9); Absolute Monocytes 0.7 K/uL (0.1-1.3); Basophils % 0.5 % (0-1.3); Eosinophils % 1.2 % (0-4.4); Hematocrit 37.8 % (39.6-49.0); Hemoglobin 12.9 g/dL (13.6-17.9); Lymphocytes % 19.7 % (15.3-44.8); MCH 29.6 pg (27.0-35.0); MCHC 34.3 g/dL (32.0-36.0); MCV 86.4 fL (80-100); MPV 8.6 fL (7.6-11.3); Monocytes % 10.1 % (3.3-12.3); Neutrophils % 68.5 % (41.7-73.7); Platelets 341 thou/uL (152-406); RBC Red Blood Cell Count 4.37 M/uL (4.33-5.43); Red Cell Distribution Width 15.1 % (12.1-15.2)
[2024-03-03 09:09] LABS: PT Prothrombin Time 13.9 SECONDS (9.5-12.5); Protime INR 1.27
[2024-03-03] MEDS ORDERED: LIDOCAINE 1% 20 ML MDV ONE (09:20)
[2024-03-03] MEDS ORDERED: VERAPAMIL HCL 10 MG/4 ML VIAL IV ONE (09:20)
[2024-03-03] MEDS ORDERED: FENTANYL CITR 100 MCG/2 ML ONE (09:20)
[2024-03-03] MEDS ORDERED: HEPA 1000U/500MLS 2,000 UNIT/1,000 ML BAG IV ONE (09:20)
[2024-03-03] MEDS ORDERED: HEPARIN 5000 UNIT/ML 1 ML VIAL ONE (09:21)
[2024-03-03] MEDS ORDERED: TICAGRELOR 90 MG TABLET PO ONE (09:21)
[2024-03-03] MEDS ORDERED: CLOPIDOGREL 75 MG TABLET ONE (09:21)
[2024-03-03] MEDS ORDERED: HEPARIN 10,000 UNIT/10 ML VIAL IV ONE (09:21)
[2024-03-03] MEDS ORDERED: MIDAZOLAM HCL 2 MG/2 ML INJ ONE (09:21)
[2024-03-03] MEDS ORDERED: ATROPINE SULF 1 MG/10 ML SYR IV ONE (09:21)
[2024-03-03 09:22] LABS: Anion Gap 8.7 mEq/L (5.0-15.0); Potassium 2.7 mEq/L (3.5-5.1); Troponin High Sensitivity 5.1 pg/mL (<58.9)
[2024-03-03] MEDS ORDERED: ASPIRIN 325 MG TAB ONE (09:22)
[2024-03-03] MEDS ORDERED: NA CHLORIDE 0.9% 500 ML ONE (09:51)
[2024-03-03] MEDS ORDERED: FLUMAZENIL 0.1 MG/ML (5 mL VIAL) IV ONE (10:02)
[2024-03-03] MEDS ORDERED: NALOXONE 0.4 MG/ML VIAL ONE (10:02)
[2024-03-03] MEDS ORDERED: ADENOSINE 6 MG/ 2ML VIAL IV ONE (10:04)
[2024-03-03] MEDS ORDERED: METOPROLOL TARTRATE 5 MG/5 ML INJ IV ONE (10:04)
[2024-03-03] MEDS: KCL 20 MEQ/100 mL IVPB 100 ML IV SCH (10:15)
[2024-03-03] MEDS: POTASSIUM CL SA 10 MEQ TAB PO ONE (10:15)
[2024-03-03] MEDS ORDERED: ONDANSETRON 4 MG/2 ML VIAL IV PRN (11:25)
--- NOTE | 2024-03-03 11:38 | OP ---
Date of Procedure: 03/03/2024 Surgeon: Aquiles Sánchez Procedures Performed: 1.Left heart catheterization. 2.PTCA of the LAD with Synergy 3.0 x 38 mm drug-eluting stent. 3.PCI of the ramus with Synergy 2.25 x 12 mm drug-eluting stent. Indication For Procedure: Nonsustained ventricular tachycardia. Complications: None. Total Sedation Time: 40 minutes. Estimated Blood Loss: Less than 50 cc. Access: Right radial, closed by TR band. Description Of Procedure: After risks, benefits, and alternatives were explained to the patient, the patient agreed to proceed with procedure and signed informed consent. The patient was brought back to the blender laborer, prepped and draped in sterile fashion. Time-out was performed. Sedation was admini stered. Right radial access was obtained using ultrasound-guided micropuncture technique. A [place] 4 catheter was advanced over the J-wire to the LV cavity. ADP was obtained. Pullback did not show an y gradient. A [place] 4 catheter was used for selective angiogram of the left and right coronary syste m that was later exchanged for an EBU 3.5 mm guide. Heparin was administered. ACT was therapeutic. Run-through wire into the LAD pre-dilated the LAD lesions with 2.5 mm NC balloon. Next, Synergy 3.0 x 38 mm drug-eluting stent placed across the lesion that was postdilated with an NC 3.25 mm balloon. Next, the run-through wire was pulled and advanced into the ramus, pre-dilated the lesions with 2.2 5 mm balloon. Next, Synergy 2.25 x 12 mm drug-eluting stent was placed to close the proximal ramus l esion. Final angiogram showed RODOLFO-3 flow. Wire was removed and EBU guide was removed over J-wire and the a ccess was closed with a TR band. Findings: 1.Left main is normal. 2.LAD, proximal 30% disease, mid diffuse 60% to 80% disease. PCI done with Synergy 3.0 x 38 mm drug -eluting stent, overlapped with old mid stent, distal diffuse disease. 3.Ramus, proximal 80% to 90% disease, status post PCI with Synergy 2.25 x 12 mm drug-eluting stent. 4.Left circ, mild LI, OM1 has mid to distal 40% disease. 5.RCA, diffuse mild LI. Assessment And Plan: 1.Significant mid LAD disease, status post PCI with Synergy 3.0 x 38 mm drug-eluting stent. 2.Significant proximal ramus disease, status post PCI with Synergy 2.25 x 12 mm drug-eluting stent. Plan: 1.Aspirin 81 mg daily for life. 2.Brilinta 180 x1 was given in the blender laborer, to continue Brilinta 90 mg p.o. b.i.d. for 12 months. Correct electrolytes. JUARES/MODL Voice ID: [id number] Report ID: [id number]
--- NOTE | 2024-03-03 12:07 | P.CNS ---
Date of Consult: 03/03/24 Chief Complaint: NSVT History of Present Illness: Patient with PMH of CAD with PCI LAD, presented with NSVT while doing stress test at cardiology office, that required amiodarone 300 mg IV and lopressor 5 mg IV, stress test was getting done for PVCs and chest pain. Allergies No Known Allergies Allergy (Verified 01/05/20 13:17) Home Medications: Atenolol/Chlorthalidone [Atenolol-Chlorthalidone 50-25] 1 tab PO DAILY 01/05/20 Metoprolol Succinate 50 mg PO BID 01/05/20 Rosuvastatin Calcium 5 mg PO DAILY 01/05/20 - Past Medical/Surgical History Diabetic: Yes -: htn -: NIDDM -: high cholesterol -: skin cancer sx - Social History Alcohol use: No CD- Drugs: No Caffeine use: No Review of Systems 10-point ROS is otherwise unremarkable Physical Examination Temp Pulse Resp BP Pulse Ox 98.2 F 120 H 15 154/98 H 03/03/24 09:05 03/03/24 09:22 03/03/24 09:22 03/03/24 09:22 General: Alert, Oriented x3 HEENT: Atraumatic Neck: Supple Respiratory: Clear to auscultation bilaterally Cardiovascular: No edema, Normal S1 S2 Gastrointestinal: Normal bowel sounds Laboratory Data (last 24 hrs) 03/03/24 03/03/24 03/03/24 08:53 08:53 08:53 WBC 7.40 Hgb 12.9 L Hct 37.8 L Plt Count 341 PT 13.9 H INR 1.27 Sodium 135 L Potassium 2.7 L BUN 10 Creatinine 0.95 Glucose 224 H - Problems (1) NSVT (nonsustained ventricular tachycardia) Current Visit: Yes Status: Acute Plan: Patient potassium level was low, given 40 po and 40 IV. please repeat patient K level and replace. Continue Amiodarone drip for 24 hours then switch to 200 mg po BID Continue Toprol XL 50 mg po BID check Magnesium level and replace if needed. (2) CAD (coronary artery disease) Current Visit: Yes Status: Acute Plan: S/P PCI LAD and ramus ASA 81 mg daily for life. Brilinta 180 mg x1 was given in coreroom foundry laborer, continue Brilinta 90 mg po BID for 12 months (3) HTN (hypertension) Current Visit: Yes Status: Acute Plan: as above. (4) HLD (hyperlipidemia) Current Visit: Yes Status: Acute Plan: Continue Crestor 20 mg daily
--- NOTE | 2024-03-03 12:18 | P.HP ---
Certification for Inpatient Patient admitted to: Inpatient With expected LOS: >2 Midnights Practitioner: I am a practitioner with admitting privileges, knowledge of patient current condition, hospital course, and medical plan of care. Services: Services provided to patient in accordance with Admission requirements found in Title 42 Section 412.3 of the Code of Federal Regulations Patient History Date of Service: 03/03/24 Primary Care Provider: Dr. Marino Reason for admission: NSVT History of Present Illness: 68 yo M with a medical history of CAD s/p PCI LAD, hypertension, hyperlipidemia, diabetes mellitus [id number] who presented to the ED with complaints of palpitations. He was sent to the ED by Dr. Jean for Non-sustained VTach wh ile doing a stress test at the cardiology office this morning. Started on amiodarone drip in ED. Reports heart palpitations which have been ongoing for a few months, which is worse during exertion. Patient taken to dairy lab technician for left heart cath by Dr. Sánchez. Allergies No Known Allergies Allergy (Verified 01/05/20 13:17) Home medications list reviewed: Yes Home Medications: Atenolol/Chlorthalidone [Atenolol-Chlorthalidone 50-25] 1 tab PO DAILY 01/05/20 Rosuvastatin Calcium 5 mg PO DAILY 01/05/20 Amlodipine [Norvasc*] 5 mg PO DAILY 03/03/24 Aspirin Chewable [Aspirin Chewable*] 81 mg PO DAILY 03/03/24 Glipizide [Glipizide Xl] 10 mg PO BID 03/03/24 Losartan Potassium 100 mg PO DAILY 03/03/24 Metformin ER [Glucophage ER*] 1,000 mg PO BID 03/03/24 - Past Medical/Surgical History Diabetic: Yes -: htn -: NIDDM -: high cholesterol -: CAD -: skin cancer sx -: prostate cancer s/p prostatectomy -: Hx PCI of LAD in 2019 - Social History Smoking Status: Never smoker Alcohol use: No CD- Drugs: No Caffeine use: No Place of Residence: Home Review of Systems 10-point ROS is otherwise unremarkable Cardiovascular: Palpitations Physical Examination - Vital Signs Temperature: 98.2 F Blood Pressure: 154/98 Pulse: 120 Respirations: 15 - Physical Exam General: Alert, In no apparent distress HEENT: Atraumatic, Normocephalic Neck: Supple Respiratory: Clear to auscultation bilaterally, Normal air movement Cardiovascular: No edema, Normal pulses, Irregular heart rate/rhythm Gastrointestinal: Normal bowel sounds, Non-distended, No tenderness, Other (round, soft) Musculoskeletal: No clubbing, No swelling Integumentary: No rashes, No breakdown Neurological: Normal speech, Normal tone, Normal affect - Studies Laboratory Data (last 24 hrs) 03/03/24 03/03/24 03/03/24 08:53 08:53 08:53 WBC 7.40 Hgb 12.9 L Hct 37.8 L Plt Count 341 PT 13.9 H INR 1.27 Sodium 135 L Potassium 2.7 L BUN 10 Creatinine 0.95 Glucose 224 H Assessment and Plan - Plan Problem List Nonsustained V. tach Hypertension Hyperlipidemia Diabetes mellitus type 2 Nonsustained V. tach Significant mid LAD and proximal ramus disease, status post PCI - Amiodarone drip started at 0855 in ED, continue amiodarone drip for 24 hours and switch to amiodarone 200 mg p.o. twice daily per cardiology recommendations -Left heart cath 03/[address] Sánchez - Significant mid LAD and proximal ramus disease s/p PCI with synergy WILLIAM -Admit to ICU postoperatively for continued monitoring. - Electrolyte replacement per protocol -Continue aspirin and brilinta - Cardiology following Hypertension Hyperlipidemia -Continue Toprol-XL - Continue Crestor Diabetes Mellitus type II -Hold home oral antidiabetic agents while inpatient -Accu-Cheks ACHS. Insulin per sliding scale. Full code VTE: brilinta, aspirin Dispo: 24-48hrs - Advance Directives Does patient have a Living Will: No Does patient have a Durable POA for Healthcare: No
[2024-03-03] MEDS: NA CHLORIDE 0.9% 500 ML ONE (12:30)
[2024-03-03 13:46] VITALS: BMI 28.1
[2024-03-03] MEDS: ACETAMINOPHEN 325 MG TABLET PO PRN (15:20)
[2024-03-03] MEDS: AMIODARONE HCL 900 MG in Dextrose 5%-Water 482 ML IV SCH (15:54)
[2024-03-03] MEDS: METOPROLOL XL 50 MG TAB PO SCH (18:12)
[2024-03-03 18:39] LABS: Magnesium 1.6 mg/dL (1.6-2.4); Potassium 3.1 mEq/L (3.5-5.1)
[2024-03-03 19:34] VITALS: O2SAT 100
[2024-03-03] MEDS ORDERED: ROSUVASTATIN 10 MG TAB PO SCH (21:00)
[2024-03-03] MEDS: TICAGRELOR 90 MG TABLET PO SCH (22:13)
[2024-03-03] MEDS: ATORVASTATIN 40 MG TAB PO SCH (22:13)
[2024-03-04 05:22] LABS: Absolute Eosinophils 0.1 K/uL (0-0.5); Absolute Monocytes 0.8 K/uL (0.1-1.3); Absolute Neutrophil 5.2 K/uL (1.8-8.0); Basophils % 0.3 % (0-1.3); Eosinophils % 1.5 % (0-4.4); Hematocrit 33.9 % (39.6-49.0); Hemoglobin 12.1 g/dL (13.6-17.9); Lymphocytes % 14.4 % (15.3-44.8); MCH 30.4 pg (27.0-35.0); MCHC 35.8 g/dL (32.0-36.0); MCV 84.9 fL (80-100); MPV 8.4 fL (7.6-11.3); Monocytes % 10.6 % (3.3-12.3); Neutrophils % 73.2 % (41.7-73.7); Platelets 343 thou/uL (152-406); RBC Red Blood Cell Count 3.99 M/uL (4.33-5.43); Red Cell Distribution Width 14.7 % (12.1-15.2)
[2024-03-04 05:30] LABS: Albumin 3.2 g/dL (3.4-5.0); Anion Gap 8.2 mEq/L (5.0-15.0); Bilirubin Total 0.7 mg/dL (0.2-1.0); Globulin 3.2 g/dL (2.3-3.5); Magnesium 1.8 mg/dL (1.6-2.4); Phosphorus 2.9 mg/dL (2.5-4.9); Potassium 3.2 mEq/L (3.5-5.1); Protein, Total 6.4 g/dL (6.4-8.2)
[2024-03-04] MEDS ORDERED: MAGNESIUM SULFATE 1 gm IVPB 1 GM/100 ML BAG IV ONE (06:50)
[2024-03-04] MEDS: MAGNESIUM SULFATE 1 gm IVPB 1 GM/100 ML BAG IV ONE (09:38)
[2024-03-04] MEDS: POTASSIUM CL SA 10 MEQ TAB PO ONE (09:39)
[2024-03-04] MEDS: ASPIRIN EC 81 MG TAB PO SCH (09:39)
[2024-03-04] MEDS: SOTALOL HCL 80 MG TAB PO SCH (11:38)
--- NOTE | 2024-03-04 11:56 | P.PN ---
Subjective Date of Service: 03/04/24 Primary Care Provider: Dr. Marino Chief Complaint: NSVT Subjective: No new changes Review of Systems 10-point ROS is otherwise unremarkable Physical Examination - Vital Signs Temperature: 98.5 F Blood Pressure: 144/88 Pulse: 76 Respirations: 16 Pulse Ox (%): 98 - Physical Exam General: Alert, Oriented x3 HEENT: Atraumatic Neck: Supple Respiratory: Clear to auscultation bilaterally Cardiovascular: No edema, Normal S1 S2 Gastrointestinal: Normal bowel sounds - Studies Laboratory Data (last 24 hrs) 03/03/24 09:51 Magnesium Cancelled Assessment And Plan - Current Problems (Diagnosis) (1) NSVT (nonsustained ventricular tachycardia) Current Visit: Yes Status: Acute Plan: correct K and Mg level (goal K more than 4 and MG more than 2) Continue Toprol XL 50 mg po BID Agree with Sotalol 80 mg po BID (EKG after 3rd dose). (2) CAD (coronary artery disease) Current Visit: Yes Status: Acute Plan: S/P PCI LAD and ramus ASA 81 mg daily for life. Brilinta 180 mg x1 was given in clinical laboratory manager, continue Brilinta 90 mg po BID for 12 months (3) HTN (hypertension) Current Visit: Yes Status: Acute Plan: as above. (4) HLD (hyperlipidemia) Current Visit: Yes Status: Acute Plan: Continue Lipitor 40 mg daily
--- NOTE | 2024-03-04 14:30 | P.PN ---
Subjective Date of Service: 03/04/24 Primary Care Provider: Dr. Marino Chief Complaint: NSVT Patient denies any chest pain at the moment. Patient reports intermittent shortness of breath during sleep. He has been in sinus rhythm. Physical Examination - Vital Signs Temperature: 98.5 F Blood Pressure: 144/88 Pulse: 76 Respirations: 16 Pulse Ox (%): 98 - Studies Laboratory Data (last 24 hrs) 03/03/24 09:51 Magnesium Cancelled Assessment And Plan - Plan Physical examination General: Alert and oriented x3, NAD, HEENT: anicteric sclera Neck: Supple, no elevated JVD Heart: Heart sounds 1 and 2 normal, regular rhythm, normal rate, no pedal edema Lungs: Clear to auscultation bilaterally, adequate breath sounds bilaterally, no rhonchi or crackles. Abdomen: Soft, nondistended, nontender, normal bowel sounds. Extremities: No tenderness, no deformity Skin: Normal skin turgor, no rash, no nodules or ulcers. Neuro: No focal motor deficit. Normal speech. Psychiatry: Normal mood, no agitation. Diagnosis Nonsustained V. tach Hypertension Hyperlipidemia Diabetes mellitus type 2 Nonsustained V. tach Significant mid LAD and proximal ramus disease, status post PCI Status post amiodarone drip. Left heart cath 03/[address] Sánchez - Significant mid LAD and proximal ramus disease s/p PCI with synergy WILLIAM Amiodarone drip transition to oral sotalol per cardiology recommendation Patient is also on Toprol-XL On aspirin and Brilinta. Monitor and optimize electrolytes-potassium and magnesium level Cardiology following Hypertension Hyperlipidemia Continue Toprol-XL Continue Crestor Diabetes Mellitus type II Accu-Cheks ACHS. Insulin per sliding scale. Advanced directive: Full code DVT prophylaxis: Lovenox
[2024-03-04] MEDS: METOPROLOL XL 50 MG TAB PO SCH (16:56)
[2024-03-04] MEDS: ENOXAPARIN 40 MG/0.4 ML SQ SCH (16:56)
[2024-03-05 08:30] LABS: Absolute Eosinophils 0.1 K/uL (0-0.5); Absolute Lymphocytes (CBC) 1.1 K/uL (0.7-4.9); Absolute Neutrophil 6.2 K/uL (1.8-8.0); Basophils % 0.3 % (0-1.3); Eosinophils % 1.5 % (0-4.4); Hematocrit 36.6 % (39.6-49.0); Hemoglobin 12.6 g/dL (13.6-17.9); Lymphocytes % 13.1 % (15.3-44.8); MCH 29.6 pg (27.0-35.0); MCHC 34.4 g/dL (32.0-36.0); MCV 86.1 fL (80-100); MPV 8.5 fL (7.6-11.3); Monocytes % 11.7 % (3.3-12.3); Neutrophils % 73.4 % (41.7-73.7); Nucleated RBC Absolute Count 0.1 (0-0); Nucleated Red Blood Cells % 0.8 % (0-0); Platelets 359 thou/uL (152-406); RBC Red Blood Cell Count 4.25 M/uL (4.33-5.43); Red Cell Distribution Width 14.8 % (12.1-15.2)
[2024-03-05 08:49] LABS: Albumin 3.4 g/dL (3.4-5.0); Anion Gap 8.3 mEq/L (5.0-15.0); Bilirubin Total 0.9 mg/dL (0.2-1.0); Globulin 3.4 g/dL (2.3-3.5); Potassium 3.3 mEq/L (3.5-5.1); Protein, Total 6.8 g/dL (6.4-8.2)
--- NOTE | 2024-03-05 09:24 | P.DS ---
Admission Date: 03/03/24 Discharge Date: 03/05/24 Primary Care Provider: Dr. Marino Disposition: ROUTINE DISCHARGE Discharge Condition: FAIR Reason for Admission: NSVT Hospital Course: Diagnosis Nonsustained V. tach Hypertension Hyperlipidemia Diabetes mellitus type 2 Nonsustained V. tach Significant mid LAD and proximal ramus disease, status post PCI Status post amiodarone drip. Left heart cath 03/[address] Sánchez - Significant mid LAD and proximal ramus disease s/p PCI with synergy WILLIAM Amiodarone drip transition to oral sotalol per cardiology recommendation Patient is also on Toprol-XL Placed on aspirin and Brilinta. Cardiology following Hypertension Hyperlipidemia Managed with Toprol-XL during the hospital stay. Continued Crestor Diabetes Mellitus type II Accu-Cheks ACHS. Insulin per sliding scale. Patient presented to the ED with complaints of palpitations of a few months duration. He was sent to the ED by cardiology Dr. Jean for Non-sustained VTach while doing a stress test at the cardiology office. He was started on amiodarone drip in ED, evaluated by cardiology Dr. Sánchez who recommended cardiac catheterization. Cardiac cath revealed significant mid LAD and proximal ramus disease which were stented. Patient admitted to the ICU where he was treated with amiodarone drip and later transitioned to oral sotalol. He was also on oral Toprol-XL. Patient was placed on aspirin and Brilinta. He was also placed on high-dose statin. Patient is currently asymptomatic, denies any complaint, with stable vitals. He is deemed stable for discharge by cardiology. Patient blood pressure for most part was controlled by metoprolol XL 50 mg twice a day. Patient is on multiple antihypertensives-atenolol/hydrochlorothiazide, amlodipine and losartan at home which were all discontinued during the hospital stay. You are advised to resume losartan if your systolic blood pressure becomes consistently elevated to 135 or more on the metoprolol XL. Please follow-up with cardiology within 1 to 2 weeks. Vital Signs/Physical Exam: Temp Pulse Resp BP Pulse Ox 97.6 F 74 17 165/89 H 98 03/05/24 04:00 03/05/24 04:58 03/05/24 04:00 03/05/24 04:58 03/05/24 04:00 General: Alert, In no apparent distress HEENT: Mucous membr. moist/pink Neck: Supple, JVD not distended Respiratory: Clear to auscultation bilaterally, Normal air movement Cardiovascular: No edema, Regular rate/rhythm, Normal S1 S2 Gastrointestinal: Soft and benign, Non-distended Musculoskeletal: No swelling, No tenderness Integumentary: No rashes, No cyanosis Neurological: Normal speech, Normal strength at 5/5 x4 extr Laboratory Data at Discharge: WBC 8.50 thou/uL (4.3-10.9) 03/05/24 07:13 Hgb 12.6 g/dL (13.6-17.9) L 03/05/24 07:13 Hct 36.6 % (39.6-49.0) L 03/05/24 07:13 Plt Count 359 thou/uL (152-406) 03/05/24 07:13 PT 13.9 SECONDS (9.5-12.5) H 03/03/24 08:53 INR 1.27 03/03/24 08:53 Sodium 133 mEq/L (136-145) L D 03/05/24 07:13 Potassium 3.3 mEq/L (3.5-5.1) L 03/05/24 07:13 BUN 10 mg/dL (7-18) 03/05/24 07:13 Creatinine 0.75 mg/dL (0.70-1.30) 03/05/24 07:13 Glucose 172 mg/dL (74-106) H 03/05/24 07:13 Phosphorus 2.9 mg/dL (2.5-4.9) 03/04/24 04:19 Magnesium 1.8 mg/dL (1.6-2.4) 03/04/24 04:19 Total Bilirubin 0.9 mg/dL (0.2-1.0) 03/05/24 07:13 AST 21 U/L (15-37) 03/05/24 07:13 ALT 33 U/L (16-61) 03/05/24 07:13 Alkaline Phosphatase 64 U/L (45-117) 03/05/24 07:13 Triglycerides 119 mg/dL (<150) 03/04/24 04:19 Cholesterol 150 mg/dL (<200) 03/04/24 04:19 HDL Cholesterol 37 mg/dL (40-60) L 03/04/24 04:19 Cholesterol/HDL Ratio 4.05 03/04/24 04:19 Home Medications: Glipizide [Glipizide Xl] 10 mg PO BID 03/03/24 Metformin ER [Glucophage ER*] 1,000 mg PO BID 03/03/24 Aspirin Chewable [Aspirin Chewable*] 81 mg PO DAILY #30 tab.chew 03/05/24 Magnesium Oxide [Mag 0X*] 400 mg PO BID #4 tab 03/05/24 Metoprolol Succinate [Toprol Xl*] 50 mg PO 0500,1700 #60 tab 03/05/24 Potassium Chloride [K-Dur] 20 meq PO DAILY #30 tab 03/05/24 Potassium Oral Tab [Klor-Con 10 mEq Tab*] 20 meq PO DAILY #2 tab 03/05/24 Rosuvastatin Calcium 10 mg PO DAILY #30 tab 03/05/24 Sotalol HCl [Betapace*] 80 mg PO BID 6AM 6PM #60 tab 03/05/24 Ticagrelor [Brilinta*] 90 mg PO BID #60 tab 03/05/24 New Medications: Aspirin Chewable [Aspirin Chewable*] 81 mg PO DAILY #30 tab.chew Sotalol HCl [Betapace*] 80 mg PO BID 6AM 6PM #60 tab Ticagrelor [Brilinta*] 90 mg PO BID #60 tab Potassium Chloride [K-Dur] 20 meq PO DAILY #30 tab Potassium Oral Tab [Klor-Con 10 mEq Tab*] 20 meq PO DAILY #2 tab Magnesium Oxide [Mag 0X*] 400 mg PO BID #4 tab Rosuvastatin Calcium 10 mg PO DAILY #30 tab Metoprolol Succinate [Toprol Xl*] 50 mg PO 0500,1700 #60 tab Physician Discharge Instructions: Patient presented to the ED with complaints of palpitations of a few months duration. He was sent to the ED by cardiology Dr. Jean for Non-sustained VTach while doing a stress test at the cardiology office. He was started on amiodarone drip in ED, evaluated by cardiology Dr. Sánchez who recommended cardiac catheterization. Cardiac cath revealed significant mid LAD and proximal ramus disease which were stented. Patient admitted to the ICU where he was treated with amiodarone drip and later transitioned to oral sotalol. He was also on oral Toprol-XL. Patient was placed on aspirin and Brilinta. He was also placed on high-dose statin. Patient is currently asymptomatic, denies any complaint, with stable vitals. He is deemed stable for discharge by cardiology. Patient blood pressure for most part was controlled by metoprolol XL 50 mg twice a day. Patient is on multiple antihypertensives-atenolol/hydrochlorothiazide, amlodipine and losartan at home which were all discontinued during the hospital stay. You are advised to resume losartan if your systolic blood pressure becomes consistently elevated to 135 or more on the metoprolol XL. Please follow-up with cardiology within 1 to 2 weeks. Diet: ADA Activity: Ad cris Followup: Michael Jean MD [ACTIVE - CAN ADMIT] - 1-2 Weeks Tavon Marino MD [Primary Care Provider] - 1-2 Weeks Time spent managing pt's care (in minutes): 42
[2024-03-05] MEDS: POTASSIUM CL SA 10 MEQ TAB PO ONE (09:26)
[2024-03-05] MEDS: MAGNESIUM OXIDE 400 MG TAB PO SCH (09:27)
[2024-03-05 10:21] VITALS: BP 148/82; TEMP 97.4
--- NOTE | 2024-03-05 11:00 | P.PN ---
Subjective Date of Service: 03/05/24 Primary Care Provider: Dr. Marino Chief Complaint: NSVT Subjective: No new changes Review of Systems 10-point ROS is otherwise unremarkable Physical Examination - Vital Signs Temperature: 97.4 F Blood Pressure: 148/82 Pulse: 67 Respirations: 20 Pulse Ox (%): 96 - Physical Exam General: Alert, Oriented x3 HEENT: Atraumatic Neck: Supple Respiratory: Clear to auscultation bilaterally Cardiovascular: No edema, Normal S1 S2 Gastrointestinal: Normal bowel sounds Assessment And Plan - Current Problems (Diagnosis) (1) NSVT (nonsustained ventricular tachycardia) Current Visit: Yes Status: Acute Plan: correct K and Mg level (goal K more than 4 and MG more than 2) Continue Toprol XL 50 mg po BID Sotalol 80 mg po BID (EKG after 3rd dose shows QTc 500 ms). (2) CAD (coronary artery disease) Current Visit: Yes Status: Acute Plan: S/P PCI LAD and ramus ASA 81 mg daily for life. Brilinta 180 mg x1 was given in quality assurance qa lab analyst, continue Brilinta 90 mg po BID for 12 months (3) HTN (hypertension) Current Visit: Yes Status: Acute Plan: as above. (4) HLD (hyperlipidemia) Current Visit: Yes Status: Acute Plan: Continue Lipitor 40 mg daily
--- NOTE | 2024-03-05 13:06 | EKG ---
Test Date: 2024-03-05 Test Time: 07:54:05 Topographical Drafter: JASSI MEASUREMENT RESULTS: Intervals: Rate: 67 IL: 202 QRSD: 94 QT: 474 QTc: 500 [place]: P: 67 IL: 202 QRS: 58 T: 60 INTERPRETIVE STATEMENTS: Normal sinus rhythm Prolonged QT Abnormal ECG Compared to ECG 03/03/2024 08:32:14 Prolonged QT interval now present Sinus tachycardia no longer present Ventricular premature complex(es) no longer present ST (T wave) deviation no longer present Electronically Signed On 03-05-24 13:05:07 CDT by Michael Jean
--- NOTE | 2024-03-05 13:13 | EKG ---
Test Date: 2024-03-03 Test Time: 08:32:14 Building Architectural Designer: MEY MEASUREMENT RESULTS: Intervals: Rate: 104 TN: 182 QRSD: 96 QT: 390 QTc: 512 [place]: P: 53 TN: 182 QRS: 36 T: 8 INTERPRETIVE STATEMENTS: Sinus tachycardia with frequent premature ventricular complexes Nonspecific ST abnormality Abnormal ECG Compared to ECG 10/24/2021 20:12:49 Ventricular premature complex(es) now present ST (T wave) deviation now present Sinus rhythm no longer present Electronically Signed On 03-05-24 13:07:48 CDT by Michael Jean
[2024-03-06] MEDS ORDERED: POTASSIUM CL SA 10 MEQ TAB PO SCH (09:00)
== END 2024-03-05 11:49 | disposition home or self-care (01) | DRG 322 ==
LOC: ER 08:24 → ERHOLD 09:56 → 3RD-ICU 11:55 → 2ND 03-04 21:53
PROVIDERS: ADMIT Hospitalist; ATTEND Internal Medicine
PROC: 027135Z Dilation of Coronary Artery, Two Arteries with Two Drug-eluting Intraluminal Devices, Percutaneous Approach (ICD-10-PCS; principal; 2024-03-03)
PROC: 4A023N7 Measurement of Cardiac Sampling and Pressure, Left Heart, Percutaneous Approach (ICD-10-PCS; 2024-03-03)
PROC: B2111ZZ Fluoroscopy of Multiple Coronary Arteries using Low Osmolar Contrast (ICD-10-PCS; 2024-03-03)
DX: I47.20 Ventricular tachycardia, unspecified (principal); I25.110 Atherosclerotic heart disease of native coronary artery with unstable angina pectoris; E11.9 Type 2 diabetes mellitus without complications; E78.00 Pure hypercholesterolemia, unspecified; I10 Essential (primary) hypertension; I48.91 Unspecified atrial fibrillation; I49.3 Ventricular premature depolarization; I25.2 Old myocardial infarction; Z23 Encounter for immunization; Z79.2 Long term (current) use of antibiotics; Z79.84 Long term (current) use of oral hypoglycemic drugs; Z85.46 Personal history of malignant neoplasm of prostate; Z90.79 Acquired absence of other genital organ(s); Z79.899 Other long term (current) drug therapy; Z85.828 Personal history of other malignant neoplasm of skin
CPT/HCPCS: 36415; 76937; 80048; 80053; 80061; 82947; 83735; 83880; 84100; 84132; 84484; 85025; 85347; 85610; 93005; 93458; 99152; 99153; 99285; C1725; C1893; C9600; C9601; J0153; J0282; J0461; J1644; J1650; J2001; J2250; J2310; J3010; J3475; J3480; J7040; J7060; Q9967

== ENCOUNTER 2024-03-06 04:36 | Observation (INO) | payer OTHER, MEDICARE ==
[2024-03-06] MEDS ORDERED: HYDRALAZINE HCL 20 MG/ML VIAL ONE (05:13)
[2024-03-06 05:28] LABS: Absolute Eosinophils 0.1 K/uL (0-0.5); Absolute Lymphocytes (CBC) 1.2 K/uL (0.7-4.9); Absolute Monocytes 1.1 K/uL (0.1-1.3); Absolute Neutrophil 7.3 K/uL (1.8-8.0); Basophils % 0.3 % (0-1.3); Eosinophils % 1.4 % (0-4.4); Hematocrit 35.9 % (39.6-49.0); Hemoglobin 12.6 g/dL (13.6-17.9); Lymphocytes % 11.8 % (15.3-44.8); MCH 29.9 pg (27.0-35.0); MCHC 35.1 g/dL (32.0-36.0); MCV 85.3 fL (80-100); MPV 7.9 fL (7.6-11.3); Monocytes % 11.3 % (3.3-12.3); Neutrophils % 75.2 % (41.7-73.7); Nucleated Red Blood Cells % 0.1 % (0-0); PT Prothrombin Time 14.5 SECONDS (9.5-12.5); Platelets 331 thou/uL (152-406); Protime INR 1.33; RBC Red Blood Cell Count 4.21 M/uL (4.33-5.43)
[2024-03-06] MEDS ORDERED: AMIODARONE HCL 150 MG/3 ML INJ IV ONE (05:36)
[2024-03-06] MEDS ORDERED: AMIODARONE IN DEXTROSE,ISO-OSM 360 MG/200 ML BAG IV ONE (05:37)
[2024-03-06] MEDS ORDERED: METOPROLOL TARTRATE 5 MG/5 ML INJ IV ONE (05:37)
[2024-03-06] MEDS ORDERED: D5W 100 ML IV ONE (05:41)
[2024-03-06 06:01] LABS: Albumin 3.6 g/dL (3.4-5.0); Albumin/Globulin Ratio 0.9 (1.1-1.8); Anion Gap 10.9 mEq/L (5.0-15.0); Bilirubin Direct 0.3 mg/dL (0-0.2); Bilirubin Indirect, Calculated 0.7 mg/dL (0.2-0.8); Globulin 3.8 g/dL (2.3-3.5); Magnesium 1.9 mg/dL (1.6-2.4); Potassium 2.9 mEq/L (3.5-5.1); Protein, Total 7.4 g/dL (6.4-8.2)
[2024-03-06 06:04] LABS: Troponin High Sensitivity 549.7 pg/mL (<58.9)
[2024-03-06] MEDS ORDERED: NA CHLORIDE 0.9% 1,000 ML ONE (06:41)
--- NOTE | 2024-03-06 06:49 | ER ---
Nurse's Notes [facility] Name: Ludin Monreal Age: 68 yrs Sex: Male : 1955 Arrival Date: 03/06/2024 Time: 04:36 Bed 13 Private MD: Diagnosis: Ventricular tachycardia;Palpitations;Essential (primary) hypertension;Hypertensive crisis Presentation: 03/06 04:57 Chief complaint: Patient states: feels like heart is skipping a beat. Coronavirus vc1 screen: Client denies travel out of the [place] in the last 14 days. At this time, the client does not indicate any symptoms associated with coronavirus-19. Ebola Screen: Patient negative for fever greater than or equal to 101.5 degrees Fahrenheit, and additional compatible Ebola Virus Disease symptoms Patient denies exposure to infectious person. Patient denies travel to an Ebola-affected area in the 21 days before illness onset. No symptoms or risks identified at this time. Initial Sepsis Screen: Does the patient meet any 2 criteria? No. Patient's initial sepsis screen is negative. Does the patient have a suspected source of infection? No. Patient's initial sepsis screen is negative. Risk Assessment: Do you want to hurt yourself or someone else? Patient reports no desire to harm self or others. Onset of symptoms was March 06, 2024. 04:57 Method Of Arrival: Ambulatory vc1 04:57 Acuity: TERRY 3 vc1 Triage Assessment: 05:00 General: Appears in no apparent distress. uncomfortable, Behavior is cooperative, vc1 anxious. Pain: Denies pain. EENT: No deficits noted. No signs and/or symptoms were reported regarding the EENT system. Neuro: Level of Consciousness is awake, alert, obeys commands, Oriented to person, place, time, situation, Appropriate for age. Cardiovascular: Reports palpitations, Denies nausea, Heart tones S1 S2 Rhythm is sinus tachycardia. Respiratory: Airway is patent Respiratory effort is even, unlabored, Respiratory pattern is regular, symmetrical, Breath sounds are clear bilaterally. Denies shortness of breath. Derm: Skin is intact, is healthy with good turgor, Skin is dry, Skin is pink, warm \T\ dry. Skin temperature is warm. Historical: - Allergies: 05:04 No Known Allergies; vc1 - PMHx: 05:00 Atrial fibrillation; diabetes mellitus; Hypercholesterolemia; Hypertensive disorder; vc1 Myocardial infarction; Prostate Cancer; - PSHx: 05:00 prostatectomy; Stented artery; vc1 - Immunization history:: Client reports having NOT received the Covid vaccine. Flu vaccine is not up to date. - Infectious Disease History:: Denies. - Social history:: Smoking status: Patient denies any tobacco usage or history of. - Family history:: not pertinent. Screenin:03 [facility] ED Fall Risk Assessment (Adult) History of falling in the last 3 months, vc1 including since admission No falls in past 3 months (0 pts) Confusion or Disorientation No (0 pts) Intoxicated or Sedated No (0 pts) Impaired Gait No (0 pts) Mobility Assist Device Used No (0 pt) Altered Elimination No (0 pt) Score/Fall Risk Level 0 - 2 = Low Risk Oriented to surroundings, Maintained a safe environment, Educated pt \T\ family on fall prevention, incl call for assistance when getting out of bed. Abuse screen: Denies threats or abuse. Nutritional screening: No deficits noted. Tuberculosis screening: No symptoms or risk factors identified. Assessment: 05:00 General: Appears in no apparent distress. comfortable, Behavior is cooperative, jj7 appropriate for age, anxious. Pain: Denies pain. Cardiovascular: Reports palpitations. 07:32 Reassessment: Patient appears in no apparent distress at this time. No changes from ko1 previously documented assessment. Patient and/or family updated on plan of care and expected duration. Pain level reassessed. Patient is alert, oriented x 3, equal unlabored respirations, skin warm/dry/pink. General: Behavior is anxious. Vital Signs: 04:57 BP 208 / 115; Pulse 109; Resp 24; Temp 98.1; Pulse Ox 98% ; Weight 90.26 kg; Height 5 vc1 ft. 10 in. ; Pain 0/10; 05:56 BP 141 / 93; Pulse 97; Resp 17; Pulse Ox 99% ; jj7 06:30 BP 95 / 74; Pulse 90; Resp 17; Pulse Ox 98% ; jj7 07:06 BP 126 / 78; Pulse 85; Resp 21; Pulse Ox 97% ; jj7 07:31 BP 140 / 92; Pulse 86; Resp 16; Pulse Ox 99% ; ko1 10:42 BP 125 / 84; Pulse 75; Resp 16; Pulse Ox 99% ; ko1 04:57 Body Mass Index 28.55 (90.26 kg, 177.8 cm) vc1 04:57 Pain Scale: Adult vc1 [place] Coma Score: 07:06 Eye Response: spontaneous(4). Motor Response: obeys commands(6). Verbal Response: sp4 oriented(5). Total: 15. ED Course: 04:42 Patient arrived in ED. ra3 04:48 Garfield Weiner MD is Attending Physician. sp4 05:00 Triage completed. vc1 05:03 XRAY Chest (1 view) In Process Unspecified. EDMS 05:03 Arm band placed on right wrist. vc1 05:04 Patient has correct armband on for positive identification. Bed in low position. Call vc1 light in reach. microsoft access developer on. Pulse ox on. NIBP on. 05:08 López Zhang RN is Primary Nurse. jj7 05:17 Basic Metabolic Panel Sent. jj7 05:17 CBC with Diff Sent. jj7 05:17 LFT's Sent. jj7 05:17 Magnesium Sent. jj7 05:17 NT PRO-BNP Sent. jj7 05:17 PT-INR Sent. jj7 05:17 Troponin HS Sent. jj7 05:51 Inserted saline lock: 22 gauge in right forearm, using aseptic technique. vk 05:51 Initial lab(s) drawn, by me, sent to lab. vk 05:51 EKG done, by ED staff. vk 06:48 López Norris is Hospitalizing Provider. sp4 07:07 Report given to MAYLIN MEANS. jj7 07:36 Provided Education on: na. Door closed. Noise minimized. Lights dimmed. Warm blanket ko1 given. Pillow given. Verbal reassurance given. 07:36 No provider procedures requiring assistance completed. Patient admitted, IV remains in ko1 place. Administered Medications: 05:18 Drug: hydrALAZINE IVP 20 mg IVP once Route: IVP; Site: right forearm; j7 07:04 Follow up: Response: Blood pressure is lowered jj7 05:51 Drug: Metoprolol IVP 5 mg IVP once; Hold for SBP <100 or HR <60. Route: IVP; Site: [address]; 07:03 Follow up: Response: Blood pressure is lowered jj7 05:54 Drug: amiodarone IVPB 150 mg 100 ml IVPB once over 10 mins; (mix in D5W) Volume: 100 jj7 ml; Route: IVPB; Infused Over: 10 mins; Site: right forearm; 06:10 Follow up: IV Status: Completed infusion jj7 06:10 Drug: amiodarone IVPB 900 mg, D5W IV 500 ml IVPB at 1 mg/min continuous; for 6 hrs, jj7 then change to 0.5 mg/min Route: IVPB; Rate: 1 mg/min; Site: right forearm; 07:02 Drug: NS 0.9% IV 500 ml IV at bolus once Route: IV; Rate: bolus; Site: left wrist; jj7 07:32 Follow up: Response: No adverse reaction; IV Status: Completed infusion; IV Intake: ko1 500ml 07:23 Drug: NS 0.9% IV 1000 ml IV at 125 ml/hr continuous Route: IV; Rate: 125 ml/hr; Site: ko1 right forearm; 07:23 Drug: Diazepam PO 5 mg PO once Route: PO; ko1 07:53 Follow up: Response: No adverse reaction; Anxiety decreased ko1 Medication: 05:04 VIS not applicable for this client. vc1 Intake: 07:32 IV: 500ml; Total: 500ml. ko1 Outcome: 06:49 Decision to Hospitalize by Provider. sp4 07:36 Admitted to ER Hold. Please see [facility] for further documentation. ko1 07:36 Condition: stable 07:36 Instructed on the need for admit, 10:42 Admitted to ICU accompanied by nurse, via wheelchair, room 1, on monitor, with chart, ko1 Report called to CLARY Gonzales 10:58 Patient left the ED. ko1 Signatures: Dispatcher [employer] EDMS Patsy Vargas RN RN vc1 Maylin Hutchins RN RN ko1 López Zhang RN RN jj7 Garfield Weiner MD MD sp4 Dianna Perez Vivian vk
--- NOTE | 2024-03-06 06:50 | EDPHYS ---
Physician Documentation [facility] Name: Ludin Monreal Age: 68 yrs Sex: Male : 1955 Arrival Date: 03/06/2024 Time: 04:36 Bed 13 Private MD: ED Physician Garfield Weiner HPI: 03/06 04:48 This 68 yrs old Male presents to ER via Unassigned with complaints of Heart sp4 palpitations. 07:06 8-year-old male presents with acute onset of palpitations and elevated blood pressure sp4 208/113 . Patient was managed in the hospital on 03/03/2024 for ventricular tachycardia also mid LAD disease status post PCI. Also for hypertension hyperlipidemia diabetes mellitus type 2. Patient was noted to have significant mid LAD disease and it was stented. Patient was admitted to ICU treated with amiodarone drip and then transition to oral sotalol. Was started on aspirin and Brilinta . Patient's medications include glipizide, metformin, aspirin, magnesium, metoprolol, potassium and Crestor, sotalol, ticagrelor.. Historical: - Allergies: 05:04 No Known Allergies; vc1 - PMHx: 05:00 Atrial fibrillation; diabetes mellitus; Hypercholesterolemia; Hypertensive disorder; vc1 Myocardial infarction; Prostate Cancer; - PSHx: 05:00 prostatectomy; Stented artery; vc1 - Immunization history:: Client reports having NOT received the Covid vaccine. Flu vaccine is not up to date. - Infectious Disease History:: Denies. - Social history:: Smoking status: Patient denies any tobacco usage or history of. - Family history:: not pertinent. ROS: 07:06 Constitutional: Negative for fever, chills, and weight loss, today for palpitations and sp4 tachycardia also positive for elevated blood pressure 07:06 All other systems are negative, Exam: 07:06 Constitutional: This is a well developed, well nourished patient who is awake, alert, sp4 and in no acute distress. Head/Face: Normocephalic, atraumatic. Eyes: Pupils equal round and reactive to light, extra-ocular motions intact. Lids and lashes normal. Conjunctiva and sclera are not injected. Cornea within normal limits. Periorbital areas with no swelling, redness, or edema. ENT: Nares patent. No nasal discharge, no septal abnormalities noted. Tympanic membranes are normal and external auditory canals are clear. Oropharynx with no redness, swelling, or masses, exudates, or evidence of obstruction, uvula midline. Mucous membranes moist. Neck: Trachea midline, no thyromegaly or masses palpated, and no cervical lymphadenopathy. Supple, full range of motion without nuchal rigidity, or vertebral point tenderness. Chest/axilla: Normal chest wall appearance and motion. Nontender with no deformity. No lesions are appreciated. Cardiovascular: Regular rate and rhythm with a normal S1 and S2. No gallops, murmurs, or rubs. Normal PMI, no JVD. No pulse deficits. Respiratory: Lungs have equal breath sounds bilaterally, clear to auscultation and percussion. No rales, rhonchi or wheezes noted. No increased work of breathing, no retractions or nasal flaring. Abdomen/GI: Soft, with normal bowel sounds. No distension or tympany. No guarding or rebound. No evidence of tenderness throughout. Back: No spinal tenderness. No costovertebral tenderness. Skin: Warm, dry with normal turgor. Normal color with no rashes, no lesions, and no evidence of cellulitis. MS/ Extremity: Pulses equal, no cyanosis. Neurovascular intact. Full, normal range of motion. Neuro: Awake and alert, GCS 15, oriented to person, place, time, and situation. Cranial nerves II-XII grossly intact. Motor strength 5/5 in all extremities. Sensory grossly intact. Psych: Awake, alert, with orientation to person, place and time. Behavior, mood, and affect are within normal limits 07:06 ECG was reviewed by the Attending Physician. EKG at 0 451 reveals sinus tachycardia at a rate of 113. Otherwise unremarkable Vital Signs: 04:57 BP 208 / 115; Pulse 109; Resp 24; Temp 98.1; Pulse Ox 98% ; Weight 90.26 kg; Height 5 vc1 ft. 10 in. ; Pain 0/10; 05:56 BP 141 / 93; Pulse 97; Resp 17; Pulse Ox 99% ; jj7 06:30 BP 95 / 74; Pulse 90; Resp 17; Pulse Ox 98% ; jj7 07:06 BP 126 / 78; Pulse 85; Resp 21; Pulse Ox 97% ; jj7 07:31 BP 140 / 92; Pulse 86; Resp 16; Pulse Ox 99% ; ko1 10:42 BP 125 / 84; Pulse 75; Resp 16; Pulse Ox 99% ; ko1 04:57 Body Mass Index 28.55 (90.26 kg, 177.8 cm) vc1 04:57 Pain Scale: Adult vc1 Noemi Coma Score: 07:06 Eye Response: spontaneous(4). Motor Response: obeys commands(6). Verbal Response: sp4 oriented(5). Total: 15. MDM: 05:16 Patient medically screened. 4 07:06 Differential Diagnosis altered mental status, sepsis, flu. Data reviewed: vital signs, sp4 nurses notes, old medical records, lab test result(s), EKG, radiologic studies, plain films. Consideration of Admission/Observation Patient was admitted/placed on observation. Escalation of care including admission/observation considered. Management of patient was discussed with the following: Hospitalist: Admission team Dr. Norris. ED course: Patient had several runs of ventricular tachycardia which has improved after metoprolol and amiodarone IV. 08:05 ED course: PROCEDURE: RADIOGRAPH OF THE CHEST 1 VIEW CLINICAL INDICATION: The patient spGonsalo is 68 years old and is Male; CHEST PAIN Bed Name: 13 TECHNIQUE: Frontal view of the chest. COMPARISON: XR Chest dated 10/24/2021 FINDINGS: LUNGS: Unremarkable. No consolidation. PLEURAL SPACE: Unremarkable. No pneumothorax. HEART: Unremarkable. No cardiomegaly. BONES/JOINTS: Unremarkable. No acute fracture. IMPRESSION: No acute findings in the chest. . 03/06 04:49 Order name: Basic Metabolic Panel; Complete Time: 06:49 [facility] 03/06 04:49 Order name: CBC with Diff; Complete Time: 06:49 [facility] 03/06 04:49 Order name: LFT's; Complete Time: 06:49 [facility] 03/06 04:49 Order name: Magnesium; Complete Time: 06:49 [facility] 03/06 04:49 Order name: NT PRO-BNP; Complete Time: 06:49 4 03/06 04:49 Order name: PT-INR; Complete Time: 06:49 [facility] 03/06 04:49 Order name: Troponin HS; Complete Time: 06:49 [facility] 03/06 04:49 Order name: XRAY Chest (1 view) [facility] 03/06 04:49 Order name: EKG; Complete Time: 04:50 sp4 03/06 04:49 Order name: Cardiac monitoring; Complete Time: 05: sp4 03/06 04:49 Order name: EKG - Nurse/Tech; Complete Time: 05:02 sp4 03/06 04:49 Order name: IV Saline Lock; Complete Time: 05: sp4 03/06 04:49 Order name: Labs collected and sent; Complete Time: : sp4 03/06 04:49 Order name: O2 Per Protocol; Complete Time: : sp4 03/06 04:49 Order name: O2 Sat Monitoring; Complete Time: : EC:06 Rate is 113 beats/min. Rhythm is regular, Sinus tachycardia. QRS Jeffrey is Normal. MI sp4 interval is normal. QRS interval is normal. QT interval is normal. No Q waves. T waves are Normal. No ST changes noted. Clinical impression: No evidence of ischemia. Interpreted by me. Reviewed by me. Administered Medications: 05:18 Drug: hydrALAZINE IVP 20 mg IVP once Route: IVP; Site: right forearm; jj7 07:04 Follow up: Response: Blood pressure is lowered j7 05:51 Drug: Metoprolol IVP 5 mg IVP once; Hold for SBP <100 or HR <60. Route: IVP; Site: [facility] right forearm; 07:03 Follow up: Response: Blood pressure is lowered jj7 05:54 Drug: amiodarone IVPB 150 mg 100 ml IVPB once over 10 mins; (mix in D5W) Volume: 100 jj7 ml; Route: IVPB; Infused Over: 10 mins; Site: right forearm; 06:10 Follow up: IV Status: Completed infusion jj7 06:10 Drug: amiodarone IVPB 900 mg, D5W IV 500 ml IVPB at 1 mg/min continuous; for 6 hrs, jj7 then change to 0.5 mg/min Route: IVPB; Rate: 1 mg/min; Site: right forearm; 07:02 Drug: NS 0.9% IV 500 ml IV at bolus once Route: IV; Rate: bolus; Site: left wrist; jj7 07:32 Follow up: Response: No adverse reaction; IV Status: Completed infusion; IV Intake: ko1 500ml 07:23 Drug: NS 0.9% IV 1000 ml IV at 125 ml/hr continuous Route: IV; Rate: 125 ml/hr; Site: ko1 right forearm; 07:23 Drug: Diazepam PO 5 mg PO once Route: PO; ko1 07:53 Follow up: Response: No adverse reaction; Anxiety decreased ko1 Disposition Summary: 03/06/24 06:49 Hospitalization Ordered Notes: Hospitalization Status: Inpatient Admission sp4 Provider: López Norris sp4 Condition: Stable sp4 Problem: new sp4 Symptoms: have improved sp4 Bed/Room Type: Standard sp4 [facility]03[facility]06[facility]24 10:24[facility]03[facility]06/24 10:24[facility] Diagnosis - Ventricular tachycardia sp4 - Palpitations sp4 - Essential (primary) hypertension sp4 - Hypertensive crisis sp4 Forms: - Medication Reconciliation Form sp4 - SBAR form sp4 - Leadership Thank You Letter sp4 Signatures: Dispatcher [employer] EDMS Patsy Vargas RN RN vc1 Maylin Hutchins RN RN ko1 López Zhang RN RN jj7 Ada Melo 6 Garfield Weiner MD MD sp4 Corrections: (The following items were deleted from the chart) 10:24 06:49 Telemetry/MedSurg (Inpatient) sp4 6 10:24 06:49 sp4 6
[2024-03-06] MEDS ORDERED: DIAZEPAM 5 MG TABLET ONE (07:21)
[2024-03-06] MEDS ORDERED: ONDANSETRON 4 MG/2 ML VIAL IV PRN (09:08)
[2024-03-06] MEDS ORDERED: ACETAMINOPHEN 500 MG TAB PO PRN (09:08)
[2024-03-06] MEDS: ROSUVASTATIN 10 MG TAB PO SCH (09:14)
[2024-03-06] MEDS: TICAGRELOR 90 MG TABLET PO SCH (09:14)
[2024-03-06] MEDS: ASPIRIN 81 MG CHEWABLE TABLET PO SCH (09:15)
[2024-03-06] MEDS ORDERED: D50W 25 GM/50 ML SYRINGE IV PRN (09:30)
[2024-03-06] MEDS ORDERED: GLUCAGON 1 MG/VIAL IM PRN (09:30)
[2024-03-06] MEDS: METOPROLOL XL 50 MG TAB PO SCH (09:30)
[2024-03-06] MEDS: ENOXAPARIN 100 MG/ML SYR SQ SCH (09:31)
[2024-03-06] MEDS ORDERED: D10W 125 ML IV PRN (09:38)
--- NOTE | 2024-03-06 09:40 | P.HP ---
Certification for Inpatient Patient admitted to: Observation With expected LOS: <2 Midnights Practitioner: I am a practitioner with admitting privileges, knowledge of patient current condition, hospital course, and medical plan of care. Services: Services provided to patient in accordance with Admission requirements found in Title 42 Section 412.3 of the Code of Federal Regulations Patient History Date of Service: 03/06/24 Reason for admission: Palpitation History of Present Illness: 68-year-old gentleman recently discharged from hospitalization yesterday, with a diagnosis nonsustained V. tach, coronary artery disease status post recent stents presented to the emergency department due to recurrence of palpitation. Patient stated he felt he was skipping beat and then he felt his heart fluttering. Nonsustained V. tach noted during evaluation in the ED. Patient systolic blood pressure was also severely elevated to 203. Patient reports picking up his aspirin and Brilinta which was prescribed on discharge. He states that he did not get the metoprolol and sotalol because his pharmacy stated they have ordered those medications and they are yet to be delivered. Patient reported taking aspirin and Brilinta but no metoprolol or Toprol-XL. He also did not take any of his old antihypertensives or atenolol. His initial troponin is elevated to 500 and potassium of 2.9. Patient started on amiodarone drip and admitted for further management. Allergies No Known Allergies Allergy (Verified 01/05/20 13:17) Home Medications: Glipizide [Glipizide Xl] 10 mg PO BID 03/03/24 Metformin ER [Glucophage ER*] 1,000 mg PO BID 03/03/24 Aspirin Chewable [Aspirin Chewable*] 81 mg PO DAILY #30 tab.chew 03/05/24 Magnesium Oxide [Mag 0X*] 400 mg PO BID #4 tab 03/05/24 Metoprolol Succinate [Toprol Xl*] 50 mg PO 0500,1700 #60 tab 03/05/24 Potassium Chloride [K-Dur] 20 meq PO DAILY #30 tab 03/05/24 Potassium Oral Tab [Klor-Con 10 mEq Tab*] 20 meq PO DAILY #2 tab 03/05/24 Rosuvastatin Calcium 10 mg PO DAILY #30 tab 03/05/24 Sotalol HCl [Betapace*] 80 mg PO BID 6AM 6PM #60 tab 03/05/24 Ticagrelor [Brilinta*] 90 mg PO BID #60 tab 03/05/24 - Past Medical/Surgical History Diabetic: Yes -: htn -: NIDDM -: high cholesterol -: CAD -: skin cancer sx -: prostate cancer s/p prostatectomy -: Hx PCI of LAD in 2019 - Social History Alcohol use: No CD- Drugs: No Caffeine use: No Review of Systems Other: Patient denies chest pain but endorses some chest tightness. He denied any cough or shortness of breath. He denied any fever or abdominal pain or nausea or vomiting or diarrhea. Except as documented, all other systems reviewed and negative. Physical Examination - Physical Exam General: Alert, In no apparent distress, Oriented x3 HEENT: Atraumatic, Mucous membr. moist/pink Neck: Supple, JVD not distended Respiratory: Clear to auscultation bilaterally, Normal air movement Cardiovascular: No edema, Normal S1 S2, No murmurs Capillary refill: <2 Seconds Gastrointestinal: Normal bowel sounds, Soft and benign, Non-distended, No tenderness Musculoskeletal: No swelling Integumentary: No rashes, No cyanosis Neurological: Normal speech, Normal strength at 5/5 x4 extr, Cranial nerves 3-12 intact Lymphatics: No axilla or inguinal lymphadenopathy - Studies Laboratory Data (last 24 hrs) 03/06/24 03/06/24 03/06/24 05:13 05:13 05:13 WBC 9.80 Hgb 12.6 L Hct 35.9 L Plt Count 331 PT 14.5 H INR 1.33 Sodium 134 L Potassium 2.9 L BUN 13 Creatinine 0.84 Glucose 176 H Magnesium 1.9 Total Bilirubin 1.0 AST 16 ALT 33 Alkaline Phosphatase 71 Assessment and Plan - Problems (Diagnosis) (1) NSVT (nonsustained ventricular tachycardia) Current Visit: No Status: Acute (2) Malignant hypertension Current Visit: Yes Status: Acute (3) Hx of heart artery stent Current Visit: Yes Status: Acute (4) Type II diabetes mellitus Current Visit: Yes Status: Acute (5) CAD (coronary artery disease) Current Visit: No Status: Acute - Plan Nonsustained V. tach Patient was started on amiodarone in the ED. Admit to ICU Transition IV amiodarone to oral sotalol Close cardiac monitoring Optimize electrolytes-potassium and magnesium. Target potassium of 4.0 and magnesium level of 2.0. Resume home dose metoprolol XL Cardiology consult. Elevated troponin Coronary artery disease History of cardiac stent Probably secondary to demand ischemia given severe hypertension. Continue to trend troponin Start full dose Lovenox Cardiology consulted. Hypokalemia Replace potassium with IV for target potassium level of greater than 4. Monitor and correct magnesium and phosphorus levels as needed. Diabetes mellitus type 2 Hold home oral hypoglycemics. Monitor blood sugar with insulin sliding scale during the hospital stay. Malignant hypertension Home dose metoprolol resumed. Monitor BP and add losartan as needed. DVT prophylaxis: On Lovenox - Advance Directives Does patient have a Living Will: No Does patient have a Durable POA for Healthcare: No
[2024-03-06] MEDS: POTASSIUM CL 40 MEQ in NA CHLORIDE 0.9% 500 ML IV SCH (10:00)
[2024-03-06] MEDS ORDERED: ENOXAPARIN 100 MG/ML SYR SQ ONE (10:08)
[2024-03-06] MEDS ORDERED: ASPIRIN 81 MG CHEWABLE TABLET ONE (10:08)
[2024-03-06] MEDS ORDERED: METOPROLOL XL 50 MG TAB PO ONE (10:08)
[2024-03-06] MEDS ORDERED: TICAGRELOR 90 MG TABLET PO ONE (10:08)
[2024-03-06] MEDS ORDERED: KCL 20 MEQ/100 mL IVPB 200 ML IV ONE (10:09)
--- NOTE | 2024-03-06 11:04 | RAD REPORT ---
EXAM DESCRIPTION: RADIOGRAPH OF THE CHEST 1 VIEW CLINICAL HISTORY: The patient is 68 years old and is Male; CHEST PAIN Bed Name: 13 TECHNIQUE: Frontal view of the chest. COMPARISON: XR Chest dated 10/24/2021 FINDINGS: LUNGS: Unremarkable. No consolidation. PLEURAL SPACE: Unremarkable. No pneumothorax. HEART: Unremarkable. No cardiomegaly. BONES/JOINTS: Unremarkable. No acute fracture. IMPRESSION: No acute findings in the chest. Electronically signed by: Adolfo Reddy MD 03/06/2024 07:58 AM CDT Due to temporary technical issues with the PACS/Fluency reporting system, reports are being signed by the in house radiologist without review as a courtesy to ensure prompt reporting. The interpreting r adiologist is fully responsible for the content of the report.
[2024-03-06 11:29] VITALS: O2SAT 99
[2024-03-06 12:01] VITALS: BMI 28.5
[2024-03-06] MEDS: D5W 100 ML IV ONE (12:46)
[2024-03-06] MEDS: INSULIN REGULAR (HUMAN) 100 UNIT/ML SQ SCH (13:15)
[2024-03-06] MEDS: PNEUMOCOCCAL VACCINE 0.5 ML IMVAC ONE (13:16)
[2024-03-06] MEDS: AMIODARONE IN DEXTROSE,ISO-OSM 360 MG/200 ML BAG IV ONE (13:17)
--- NOTE | 2024-03-06 15:51 | P.CNS ---
Date of Consult: 03/06/24 Chief Complaint: Palpitation History of Present Illness: Patient with PMH of CAD s/p recent PCI LAD and Ramus for NSVT, recently discharged from the hospital felt palpitations last night, found to have runs of NSVT in the ER, patient denies any chest pain, no SOB, no syncope. Allergies No Known Allergies Allergy (Verified 01/05/20 13:17) Home Medications: Glipizide [Glipizide Xl] 10 mg PO BID 03/03/24 Aspirin Chewable [Aspirin Chewable*] 81 mg PO DAILY #30 tab.chew 03/05/24 Magnesium Oxide [Mag 0X*] 400 mg PO BID #4 tab 03/05/24 Metoprolol Succinate [Toprol Xl*] 50 mg PO 0500,1700 #60 tab 03/05/24 Potassium Oral Tab [Klor-Con 10 mEq Tab*] 20 meq PO DAILY #2 tab 03/05/24 Rosuvastatin Calcium 10 mg PO DAILY #30 tab 03/05/24 Sotalol HCl [Betapace*] 80 mg PO BID 6AM 6PM #60 tab 03/05/24 Ticagrelor [Brilinta*] 90 mg PO BID #60 tab 03/05/24 Losartan/Hydrochlorothiazide [Losartan-Hctz 100-12.5 mg Tab] 1 each PO DAILY 03/06/24 Metformin ER [Glucophage ER] 1,000 mg PO BID 03/06/24 - Past Medical/Surgical History Diabetic: Yes -: HTN -: DM -: HLD -: CAD -: skin cancer sx -: prostate cancer s/p prostatectomy -: Hx PCI of LAD in 2019 -: Stent in 2023 - Social History Alcohol use: No CD- Drugs: No Caffeine use: No Place of Residence: Home Review of Systems 10-point ROS is otherwise unremarkable Physical Examination Temp Pulse Resp BP Pulse Ox 97.6 F 83 23 H 140/73 99 03/06/24 11:44 03/06/24 11:44 03/06/24 11:44 03/06/24 11:44 03/06/24 11:44 General: Alert, Oriented x3 HEENT: Atraumatic Neck: Supple Respiratory: Clear to auscultation bilaterally Cardiovascular: No edema, Normal S1 S2 Gastrointestinal: Normal bowel sounds Laboratory Data (last 24 hrs) 03/06/24 03/06/24 03/06/24 05:13 05:13 05:13 WBC 9.80 Hgb 12.6 L Hct 35.9 L Plt Count 331 PT 14.5 H INR 1.33 Sodium 134 L Potassium 2.9 L BUN 13 Creatinine 0.84 Glucose 176 H Magnesium 1.9 Total Bilirubin 1.0 AST 16 ALT 33 Alkaline Phosphatase 71 - Problems (1) CAD (coronary artery disease) Current Visit: No Status: Acute Plan: Troponin down trending, most likely demand ischemia from high ANÍBAL Continue ASA 81 mg daily Continue Brilinta 90 mg po BID for 12 months. (2) HLD (hyperlipidemia) Current Visit: No Status: Acute Plan: Continue Lipitor 40 mg daily (3) HTN (hypertension) Current Visit: No Status: Acute Plan: Continue Toprol XL 50 mg po BID Start patient on Losartan 25 mg daily. (4) NSVT (nonsustained ventricular tachycardia) Current Visit: No Status: Acute Plan: Stop Amiodarone drip Continue Sotalol Continue Toprol Correct Potassium, goal is more than 4, also correct Mg level, goal is more than 2.
[2024-03-06] MEDS: SOTALOL HCL 80 MG TAB PO SCH (17:09)
[2024-03-06] MEDS: MAGNESIUM OXIDE 400 MG TAB PO SCH (20:50)
[2024-03-07 10:02] LABS: Anion Gap 8.6 mEq/L (5.0-15.0); Magnesium 2.1 mg/dL (1.6-2.4); Phosphorus 2.5 mg/dL (2.5-4.9); Potassium 3.6 mEq/L (3.5-5.1)
[2024-03-07 10:03] LABS: Absolute Eosinophils 0.1 K/uL (0-0.5); Absolute Lymphocytes (CBC) 1.3 K/uL (0.7-4.9); Absolute Monocytes 0.9 K/uL (0.1-1.3); Absolute Neutrophil 5.1 K/uL (1.8-8.0); Basophils % 0.3 % (0-1.3); Eosinophils % 1.8 % (0-4.4); Hematocrit 32.7 % (39.6-49.0); Hemoglobin 10.9 g/dL (13.6-17.9); Lymphocytes % 17.7 % (15.3-44.8); MCH 28.9 pg (27.0-35.0); MCHC 33.4 g/dL (32.0-36.0); MCV 86.7 fL (80-100); MPV 8.7 fL (7.6-11.3); Monocytes % 12.5 % (3.3-12.3); Neutrophils % 67.7 % (41.7-73.7); Nucleated Red Blood Cells % 0.1 % (0-0); Platelets 307 thou/uL (152-406); RBC Red Blood Cell Count 3.77 M/uL (4.33-5.43); Red Cell Distribution Width 14.6 % (12.1-15.2)
--- NOTE | 2024-03-07 14:41 | EKG ---
Test Date: 2024-03-06 Test Time: 04:51:25 Admissions Representative: TYREE MEASUREMENT RESULTS: Intervals: Rate: 113 WV: 186 QRSD: 86 QT: 292 QTc: 400 [place]: P: 46 WV: 186 QRS: 26 T: 106 INTERPRETIVE STATEMENTS: Sinus tachycardia Possible Left atrial enlargement Nonspecific ST and T wave abnormality Abnormal ECG Compared to ECG 03/05/2024 07:54:05 ST (T wave) deviation now present Sinus rhythm no longer present Prolonged QT interval no longer present Electronically Signed On 03-07-24 14:38:15 CDT by Michael Jean
--- NOTE | 2024-03-07 19:19 | P.DS ---
Admission Date: 03/06/24 Discharge Date: 03/07/24 Disposition: ROUTINE DISCHARGE Discharge Condition: FAIR Reason for Admission: Palpitation - Problems (1) NSVT (nonsustained ventricular tachycardia) Current Visit: No Status: Acute (2) Malignant hypertension Current Visit: Yes Status: Acute (3) Hx of heart artery stent Current Visit: Yes Status: Acute (4) Type II diabetes mellitus Current Visit: Yes Status: Acute (5) CAD (coronary artery disease) Current Visit: No Status: Acute Brief History of Present Illness: 68-year-old gentleman recently discharged from hospitalization yesterday, with a diagnosis nonsustained V. tach, coronary artery disease status post recent stent s presented to the emergency department due to recurrence of palpitation. Patient stated he felt he was skipping beat and then he felt his heart fluttering. Nonsustained V. tach noted during evaluation in the ED. Patient systolic blood pressure was also severely elevated to 203. Patient reports picking up his aspirin and Brilinta which was prescribed on discharge. He states that he did not get the metoprolol and sotalol because his pharmacy stated they have ordered those medications and they are yet to be delivered. Patient reported taking aspirin and Brilinta but no metoprolol or Toprol-XL. He also did not take any of his old antihypertensives or atenolol. His initial troponin was elevated to 500 and potassium of 2.9. Patient started on amiodarone drip and admitted for further management. Hospital Course: Patient was admitted to the medical floor and the following medical problems addressed: Nonsustained V. tach Patient was started on amiodarone in the ED and admitted to the ICU IV amiodarone was transitioned to oral sotalol. Patient's monitoring specialist revealed sinus rhythm. Potassium replaced to 3.6. Resume home dose metoprolol XL Patient evaluated by cardiology Dr. Sánchez He has remained stable and asymptomatic. He is deemed stable for discharge. Elevated troponin Coronary artery disease History of cardiac stent Patient seen by Dr. Sánchez Elevated troponin deemed secondary to demand ischemia given severe hypertension. Status post recent PCI. Troponin trended flat. He was covered with full dose Lovenox. Patient deemed stable for discharge per cardiology. Hypokalemia Replaced potassium with IV. Potassium level improved to 3.6 Magnesium level improved to 2.0 Patient reports history of hypokalemia. Case discussed with cardiology who agrees with starting low-dose Aldactone and oral potassium maintenance. Diabetes mellitus type 2 Held oral hypoglycemics and manage blood sugar with insulin sliding scale during the hospital stay. Home diabetic regimen resumed on discharge. Malignant hypertension Home dose metoprolol resumed. BP improved. Losartan added to patient's home antihypertensive regimen per cardiology recommendation. Vital Signs/Physical Exam: Temp Pulse Resp BP Pulse Ox 97.3 F 74 16 154/91 H 97 03/07/24 12:00 03/07/24 12:00 03/07/24 12:00 03/07/24 12:00 03/07/24 12:00 General: Alert, In no apparent distress, Oriented x3 HEENT: Mucous membr. moist/pink Neck: Supple, JVD not distended Respiratory: Clear to auscultation bilaterally, Normal air movement Cardiovascular: No edema, Regular rate/rhythm, Normal S1 S2 Gastrointestinal: Normal bowel sounds, Soft and benign, Non-distended, No ten derness Musculoskeletal: No swelling Integumentary: No rashes, No cyanosis Neurological: Normal strength at 5/5 x4 extr Laboratory Data at Discharge: WBC 7.50 thou/uL (4.3-10.9) 03/07/24 02:43 Hgb 10.9 g/dL (13.6-17.9) L D 03/07/24 02:43 Hct 32.7 % (39.6-49.0) L 03/07/24 02:43 Plt Count 307 thou/uL (152-406) 03/07/24 02:43 PT 14.5 SECONDS (9.5-12.5) H 03/06/24 05:13 INR 1.33 03/06/24 05:13 Sodium 138 mEq/L (136-145) 03/07/24 02:43 Potassium 3.6 mEq/L (3.5-5.1) D 03/07/24 02:43 BUN 11 mg/dL (7-18) 03/07/24 02:43 Creatinine 0.69 mg/dL (0.70-1.30) L 03/07/24 02:43 Glucose 105 mg/dL (74-106) 03/07/24 02:43 Phosphorus 2.5 mg/dL (2.5-4.9) 03/07/24 02:43 Magnesium 2.1 mg/dL (1.6-2.4) 03/07/24 02:43 Total Bilirubin 1.0 mg/dL (0.2-1.0) 03/06/24 05:13 AST 16 U/L (15-37) 03/06/24 05:13 ALT 33 U/L (16-61) 03/06/24 05:13 Alkaline Phosphatase 71 U/L (45-117) 03/06/24 05:13 Home Medications: Glipizide [Glipizide Xl] 10 mg PO BID 03/03/24 Aspirin Chewable [Aspirin Chewable*] 81 mg PO DAILY #30 tab.chew 03/05/24 Metoprolol Succinate [Toprol Xl*] 50 mg PO 0500,1700 #60 tab 03/05/24 Potassium Oral Tab [Klor-Con 10 mEq Tab*] 20 meq PO DAILY #2 tab 03/05/24 Rosuvastatin Calcium 10 mg PO DAILY #30 tab 03/05/24 Sotalol HCl [Betapace*] 80 mg PO BID 6AM 6PM #60 tab 03/05/24 Ticagrelor [Brilinta*] 90 mg PO BID #60 tab 03/05/24 Metformin ER [Glucophage ER*] 1,000 mg PO BID 03/06/24 Losartan Potassium 25 mg PO DAILY #30 tab 03/07/24 Magnesium Oxide [Mag 0X*] 400 mg PO DAILY #30 tab 03/07/24 Spironolactone [Aldactone] 25 mg PO DAILY #30 tab 03/07/24 New Medications: Spironolactone [Aldactone] 25 mg PO DAILY #30 tab Losartan Potassium 25 mg PO DAILY #30 tab Magnesium Oxide [Mag 0X*] 400 mg PO DAILY #30 tab Diet: ADA Activity: Ad cris Followup: Tavon Marino MD [Primary Care Provider] - 1-2 Weeks Michael Jean MD [ACTIVE - CAN ADMIT] - 1 Week (Please call the office for an appointment.) Time spent managing pt's care (in minutes): 28
--- NOTE | 2024-03-07 20:24 | PN ---
Date of Progress Note: 03/07/2024 Subjective: Seen at bedside. No chest pain. No further arrhythmia. Review of Systems: No chest pain, shortness of breath, orthopnea, cough. No nausea, vomiting, diarrhea. All other syst ems reviewed are negative. Physical Examination: Vital signs: Reviewed. Head and Neck: Pupils are equal, reactive to light. Intact eye movements. No JVD. No cervical lym phadenopathy. Neck is supple. Thyroid is not enlarged. Lungs: Clear to auscultation bilaterally. No rhonchi, rales, or crackles. No accessory muscle use. Heart: Regular rate and rhythm. No extra sounds. Abdomen: Soft, nontender. Bowel sounds positive. No organomegaly. No masses or hernia. No rigidi ty or rebound. Extremities: No edema, clubbing, cyanosis. Intact pulses. Skin: No rash. No nodule. Neurologic: Alert, awake, oriented x3. No acute focal deficits appreciated. Investigation: Labs reviewed. Assessment And Recommendation: 1.Coronary artery disease, status post PCI recently to LAD and ramus. No chest pain. Continue with Brilinta and baby aspirin. 2.Nonsustained ventricular tachycardia, on sotalol and Toprol. Continue current management to maint ain potassium above 4 and magnesium above 2. 3.Hypertension. Blood pressure is controlled. Continue current therapy. 4.Dyslipidemia. Continue statin. SR/MODL Voice ID: [id number] Report ID: [id number]
[2024-03-08 14:35] VITALS: BP 154/91
[2024-03-08 14:42] VITALS: TEMP 97.3
== END 2024-03-07 15:38 | disposition home or self-care (01) ==
LOC: ER 04:36 → ERHOLD 09:05 → 3RD-ICU 11:14 → 2ND 22:24
PROVIDERS: ADMIT Internal Medicine; ATTEND Internal Medicine
DX: I47.20 Ventricular tachycardia, unspecified (principal); I25.10 Atherosclerotic heart disease of native coronary artery without angina pectoris; I10 Essential (primary) hypertension; E11.9 Type 2 diabetes mellitus without complications; E78.5 Hyperlipidemia, unspecified; Z95.5 Presence of coronary angioplasty implant and graft
CPT/HCPCS: 96365; 93005; 85025 ×2; 80048 ×2; 36415 ×2; 83735 ×2; 84100; 85610; 82947 ×5; 80076; 84484 ×3; 83880; 71045; 90471; 90732; 96375; 99285; J1815 ×3; J3480 ×2; J1650 ×3; J0282 ×3; J0360; J7040; J7030; G0378 ×5

== ENCOUNTER 2024-10-28 10:35 | Emergency (ER) | payer OTHER, MEDICARE ==
--- OUTSIDE RECORDS SUMMARY | 2024-10-28 10:38 | XMS REPORT | Clinical Summary ---
Author Name Unknown Organization [facility] [place] Address [address] [place] [address] Care Team Providers Care Director Of Sleep Name Role Phone Tavon Marino MD Unavailable [phone] Social History Tobacco Use Types Packs/Day Years Used Date Smoking Tobacco: Never Assessed Sex and Gender Information Value Date Recorded Sex Assigned at Not on file Legal Sex Male 10:22 AM CDT Gender Identity Not on file Sexual Orientation Not on file Plan of Treatment Not on file Insurance BCBS PPO POS OUT OF STATE GENERIC BCBS PPO POS OUT OF STATE GENERIC BCBS PPO POS OUT OF STATE GENERIC Care Teams Director Of Sleep Relationship Specialty Start Date End Date Tavon Marino MD [address] [place] [id number] lucy PCP - External Referring Family Practice 01/23/20
--- NOTE | 2024-10-28 11:34 | RAD REPORT ---
EXAMINATION: ONE VIEW CHEST XR CLINICAL INDICATION: ABDOMINAL DISTENTION TECHNIQUE: Frontal chest projection is submitted. Examination is limited by patient positioning and t echnique. COMPARISON: 03/06/2024 FINDINGS: The lungs are well inflated and clear. The heart is upper limit of normal in size. No displaced fract ures identified. IMPRESSION: No acute intrathoracic abnormalities.
--- NOTE | 2024-10-28 12:35 | ER ---
Nurse's Notes [facility] Name: Ludin Monreal Age: 69 yrs Sex: Male : 1955 Arrival Date: 10/28/2024 Time: 10:35 Bed IW10 Private MD: Diagnosis: Presentation: 10/28 10:47 Chief complaint: Bleeding hemorrhoid that started today. Takes Brillinta. Coronavirus hb screen: At this time, the client does not indicate any symptoms associated with coronavirus-19. Ebola Screen: No symptoms or risks identified at this time. Initial Sepsis Screen: Does the patient meet any 2 criteria? No. Patient's initial sepsis screen is negative. Does the patient have a suspected source of infection? No. Patient's initial sepsis screen is negative. Risk Assessment: Do you want to hurt yourself or someone else? Patient reports no desire to harm self or others. Onset of symptoms was October 28, 2024. 10:47 Method Of Arrival: Ambulatory hb 10:47 Acuity: TERRY 3 hb Historical: - Allergies: 10:47 No Known Allergies; hb - PMHx: 10:47 Atrial fibrillation; diabetes mellitus; Hypercholesterolemia; Hypertensive disorder; hb Myocardial infarction; Prostate Cancer; - PSHx: 10:47 prostatectomy; Stented artery; hb - Immunization history:: Adult Immunizations up to date. - Infectious Disease History:: Denies. - Social history:: Smoking status: Patient denies any tobacco usage or history of. Assessment: 12:31 General: Pt reported that he is going home but will return if symptoms persist or get jl7 worse. Called and spoke with him shortly after he left ER and offered a now available bed. He was thankful but declined to return at this time. . Vital Signs: 10:47 BP 158 / 95; Pulse 78; Resp 16; Temp 98; Pulse Ox 100% ; Weight 88.45 kg; Height 5 ft. hb 11 in. ; Pain 0/10; 10:47 Body Mass Index 27.20 (88.45 kg, 180.34 cm) hb 10:47 Pain Scale: Adult hb ED Course: 10:38 Patient arrived in ED. im 10:39 Frank Thompson MD is Attending Physician. jose 10:47 Triage completed. hb 10:47 Arm band placed on. hb 11:18 XRAY Chest (1 view) In Process Unspecified. EDMS Administered Medications: No medications were administered Outcome: :33 Eloped from waiting room, before seeing physician terri 12:33 Condition: stable 12:34 Patient left the ED. terri Signatures: Dispatcher [employer] EDMS Frank Thompson MD MD cha Baxter, Heather, RN RN Naveed Onofre RN RN [email or web address] Bernadette Lawrence
[2024-10-28 12:39] VITALS: BP 158/95; TEMP 98; O2SAT 100
== END 2024-10-28 12:34 | disposition left against medical advice (07) ==
LOC: ER 10:35
DX: K64.9 Unspecified hemorrhoids (principal); Z53.21 Procedure and treatment not carried out due to patient leaving prior to being seen by health care provider; E11.9 Type 2 diabetes mellitus without complications; I10 Essential (primary) hypertension; I48.91 Unspecified atrial fibrillation; E78.00 Pure hypercholesterolemia, unspecified; I25.2 Old myocardial infarction
CPT/HCPCS: 71045; 99281

== ENCOUNTER 2024-11-18 11:15 | Emergency (ER) | payer OTHER, MEDICARE ==
--- OUTSIDE RECORDS SUMMARY | 2024-11-18 11:17 | XMS REPORT | Clinical Summary ---
Author Name Unknown Organization [facility] Address [address] [place] [address] Care Team Providers Care Potato Grader Name Role Phone Tavon Marino MD Unavailable Social History Tobacco Use Types Packs/Day Years [...] POS OUT OF STATE GENERIC Care Teams Potato Grader Relationship Specialty Start Date End Date Tavon Marino MD [address] [place] [id number] [email or web address] lucy PCP - External Referring Family Practice 01/23/20
[2024-11-18 14:53] LABS: Absolute Eosinophils 0.1 K/uL (0-0.5); Absolute Lymphocytes (CBC) 1.2 K/uL (0.7-4.9); Absolute Monocytes 0.6 K/uL (0.1-1.3); Basophils % 0.5 % (0-1.3); Eosinophils % 1.3 % (0-4.4); Hematocrit 42.5 % (39.6-49.0); Hemoglobin 14.1 g/dL (13.6-17.9); Lymphocytes % 13.1 % (15.3-44.8); MCH 28.9 pg (27.0-35.0); MCHC 33.2 g/dL (32.0-36.0); MCV 87.2 fL (80-100); MPV 7.9 fL (7.6-11.3); Monocytes % 6.9 % (3.3-12.3); Neutrophils % 78.2 % (41.7-73.7); Platelets 420 thou/uL (152-406); RBC Red Blood Cell Count 4.87 M/uL (4.33-5.43); Red Cell Distribution Width 14.1 % (12.1-15.2)
[2024-11-18 14:58] LABS: PT Prothrombin Time 13.5 SECONDS (9.4-12.5); Protime INR 1.29
--- NOTE | 2024-11-18 15:07 | RAD REPORT ---
Procedure: Chest Single View HISTORY: Cough COMPARISON: October [address] FINDINGS: The lungs appear clear of acute infiltrate. No obvious change in a left lower lobe nodule. No significant pleural effusion noted. The heart is borderline enlarged.. IMPRESSION: No acute abnormality is displayed.
[2024-11-18 15:21] LABS: ALT/SGPT 56 U/L (16-61); AST/SGOT 47 U/L (15-37); Albumin 4.2 g/dL (3.4-5.0); Albumin/Globulin Ratio 1.1 (1.1-1.8); Alkaline Phosphatase 84 U/L (45-117); Anion Gap 11.2 mEq/L (5.0-15.0); BUN Blood Urea Nitrogen 10 mg/dL (7-18); Bicarbonate 25 mEq/L (21-32); Bilirubin Direct 0.2 mg/dL (0-0.2); Bilirubin Indirect, Calculated 0.4 mg/dL (0.2-0.8); Bilirubin Total 0.6 mg/dL (0.2-1.0); Glomerular Filtration Rate 94 ml/min (=/>90); Glucose Level 132 mg/dL (74-106); Lipase 154 U/L (13-75); NT PRO-BNP 63 pg/mL (<125); Potassium 4.2 mEq/L (3.5-5.1); Protein, Total 8.2 g/dL (6.4-8.2); Sodium Level 135 mEq/L (136-145)
[2024-11-18 15:25] LABS: Troponin High Sensitivity < 3.0 pg/mL (<58.9)
[2024-11-18] MEDS ORDERED: METRONIDAZOLE 500mg IVPB 500 MG/100 ML BAG IV ONE (15:25)
[2024-11-18] MEDS ORDERED: NA CHLORIDE 0.9% 1,000 ML ONE (15:25)
[2024-11-18] MEDS ORDERED: CIPROFLOXACIN 400mg IV 400 MG/200 ML BAG IV ONE (15:25)
[2024-11-18 15:28] LABS: Specific Gravity 1.024 (1.005-1.030); Sqamous Epithelial None Seen /HPF (None Seen); Urine Bacteria None Seen /HPF (<20); Urine Bilirubin NEGATIVE (Negative); Urine Blood Negative (Negative); Urine Clarity Clear (Clear); Urine Color Colorless (Yellow); Urine Culture Reflex Order NOT NEEDED; Urine Glucose 4+ (Over) (Negative); Urine Ketones NEGATIVE (Negative); Urine Microscopic Reflex YN ORDER UMIC; Urine Nitrite NEGATIVE (Negative); Urine Protein 1+ (Negative); Urine RBC <5 /HPF (None Seen); Urine Urobilinogen Normal (Normal); Urine WBC <5 /HPF (<5); Urine pH 6.5 (5.0-7.0)
--- NOTE | 2024-11-18 16:09 | RAD REPORT ---
EXAMINATION: CT ABDOMEN AND PELVIS WITH CONTRAST CLINICAL INDICATION: Abdominal pain. Rectal bleeding TECHNIQUE: CT abdomen and pelvis was performed, after the administration of 100 cc Isovue-300.. Sagit will and coronal reconstructions were obtained. One or more of the following dose reduction techniques were used: Automated exposure control, adjustment of the mA and kV according to patient si ze, and iterative reconstruction. Unless otherwise specified, incidental findings do not require dedicated imaging follow-up. [id number]. Oral contrast was not given which limits evaluation of bowel and appendix. COMPARISON: .[address] FINDINGS: 13 mm partially calcified left lower lobe nodule unchanged from 2020 Multiple hepatic hemangiomas are present. Fatty liver. The spleen pancreas, adrenals and kidneys unremarkable Normal appendix. Small left and moderate to large right inguinal hernias containing fat No evidence of diverticulitis. Colonic wall normal caliber. A mass is not seen but can be missed with CT. Atherosclerosis : IMPRESSION: No acute abnormality displayed
--- NOTE | 2024-11-18 16:44 | ER ---
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 Coronavirus screen: Client denies travel out of the [place] in the last 14 days. Ebola Screen: Patient denies travel to an Ebola-affected area in the 21 days before illness onset. Initial Sepsis Screen: Does the patient meet any 2 criteria? No. Patient's initial sepsis screen is negative. Does the patient have a suspected source of infection? No. Patient's initial sepsis screen is negative. Risk Assessment: Do you want to hurt yourself or someone else? Patient reports no desire to harm self or others. Onset of symptoms was November 18, 2024. 11:51 Method Of Arrival: Ambulatory cm10 11:51 Acuity: TERRY 3 cm10 Historical: - Allergies: 11:52 No Known Allergies; cm10 - Home Meds: 11:52 Brilinta 90 mg oral tablet 1 tab 2 times per day [Active]; cm10 11:53 metformin 1,000 mg Oral tablet 1 tab 2 times per day [Active]; glipizide 10 mg Oral cm10 tablet 2 times per day [Active]; potassium chloride 20 mEq Oral Tablet, ER Particles/Crystals daily [Active]; magnesium oxide 400 mg magnesium Oral tablet daily [Active]; sotalol 80 mg Oral tablet 2 times per day [Active]; metoprolol tartrate 50 mg Oral tablet 2 times per day [Active]; losartan 25 mg oral tablet daily [Active]; amlodipine 5 mg tablet 2 times per day [Active]; spironolactone 25 mg Oral tablet daily [Active]; rosuvastatin 10 mg oral tablet daily [Active]; aspirin 81 mg Oral capsule [Active]; Farxiga 10 mg oral tablet 1 tab daily [Active]; escitalopram oxalate 10 mg oral tablet 1 tab daily [Active]; - PMHx: 11:52 Atrial fibrillation; diabetes mellitus; Hypercholesterolemia; Hypertensive disorder; cm10 Myocardial infarction; Prostate Cancer; - PSHx: 11:52 prostatectomy; Stented artery; cm10 - Immunization history:: Adult Immunizations up to date. - Infectious Disease History:: Denies. - Social history:: Smoking status: Patient denies any tobacco usage or history of. - Family history:: not pertinent. Screenin:03 [facility] ED Fall Risk Assessment (Adult) History of falling in the last 3 months, ld1 including since admission No falls in past 3 months (0 pts) Confusion or Disorientation No (0 pts) Intoxicated or Sedated No (0 pts) Impaired Gait No (0 pts) Mobility Assist Device Used No (0 pt) Altered Elimination No (0 pt) Score/Fall Risk Level 0 - 2 = Low Risk Oriented to surroundings, Maintained a safe environment, Educated pt \\T\\ family on fall prevention, incl call for assistance when getting out of bed, Assessed \\T\\ reinforced patient's understanding of fall precautions, Provided non-skid footwear, Hourly rounding (assess needs \\T\\ fall precautionary measures) done, Used ambulatory aids as needed (educated on \\T\\ assisted with), Used gait belt as appropriate. Abuse screen: Denies threats or abuse. Denies injuries from another. Nutritional screening: No deficits noted. Tuberculosis screening: No symptoms or risk factors identified. Assessment: 15:03 General: Appears in no apparent distress. uncomfortable, Behavior is calm, cooperative, ld1 appropriate for age. Pain: Complains of pain in gluteal cleft Pain does not radiate. Pain currently is 8 out of 10 on a pain scale. Quality of pain is described as throbbing, Pain began suddenly. Neuro: Level of Consciousness is awake, alert, obeys commands, Oriented to person, place, time, situation. Cardiovascular: Capillary refill < 3 seconds Patient's skin is warm and dry. Respiratory: Airway is patent Respiratory effort is even, unlabored. GI: Abdomen is flat, non-distended. : No signs and/or symptoms were reported regarding the genitourinary system. EENT: No signs and/or symptoms were reported regarding the EENT system. Derm: No signs and/or symptoms reported regarding the dermatologic system. Musculoskeletal: No signs and/or symptoms reported regarding the musculoskeletal system. 17:12 Reassessment: Patient appears in no apparent distress at this time. No changes from ld1 previously documented assessment. Patient and/or family updated on plan of care and expected duration. Pain level reassessed. Patient is alert, oriented x 3, equal unlabored respirations, skin warm/dry/pink. Vital Signs: 11:51 BP 155 / 89; Pulse 79; Resp 15; Temp 98.4(O); Pulse Ox 98% on R/A; Weight 88.9 kg; cm10 Height 5 ft. 10 in. ; Pain 0/10; 15:03 BP 149 / 84; Pulse 76; Resp 18; Pulse Ox 100% on R/A; Pain 8/10; ld1 16:09 BP 162 / 74; Pulse 88; Resp 18; Pulse Ox 100% on R/A; ld1 17:12 BP 155 / 76; Pulse 84; Resp 18; Pulse Ox 100% on R/A; ld1 11:51 Body Mass Index 28.12 (88.90 kg, 177.8 cm) cm10 11:51 Pain Scale: Adult cm10 15:03 Pain Scale: Adult ld1 ED Course: 11:20 Patient arrived in ED. ra3 11:26 Frank Thompson MD is Attending Physician. jose 11:52 Triage completed. cm10 11:57 Arm band placed on right wrist. Patient placed in waiting room. cm10 12:36 Chest Single View In Process Unspecified. EDMS 14:16 Isabel Nichole, RN is Primary Nurse. ld1 14:40 Type And Screen Sent. ld1 14:40 Urinalysis w/ reflexes Sent. ld1 14:40 Lipase Sent. ld1 14:40 Basic Metabolic Panel Sent. ld1 14:40 CBC with Diff Sent. ld1 14:40 LFT's Sent. ld1 14:40 Magnesium Sent. ld1 14:40 NT PRO-BNP Sent. ld1 14:40 PT-INR Sent. ld1 14:40 Troponin HS Sent. ld1 15:03 Patient has correct armband on for positive identification. Placed in gown. Bed in low ld1 position. Call light in reach. Side rails up X2. Pulse ox on. NIBP on. Door closed. Noise minimized. Warm blanket given. 15:03 No provider procedures requiring assistance completed. ld1 15:56 Abdomen In Process Unspecified. EDMS 16:41 Lucas Rocha MD is Referral Physician. jose 17:13 IV discontinued, intact, bleeding controlled, No redness/swelling at site. ld1 Administered Medications: 15:32 Drug: NS 0.9% IV 500 ml IV at bolus once; to be given as a bolus over 30 minutes Route: ld1 IV; Rate: bolus; Site: left antecubital; 17:13 Follow up: Response: No adverse reaction; IV Status: Completed infusion; IV Intake: ld1 500ml 15:32 Drug: NS 0.9% IV 500 ml 500 ml IV at 125 ml/hr once Volume: 500 ml; Route: IV; Rate: ld1 125 ml/hr; Site: left antecubital; 17:13 Follow up: Response: No adverse reaction; IV Status: Completed infusion; IV Intake: ld1 500ml 15:32 Drug: Ciprofloxacin IVPB 400 mg 200 ml IVPB once over 60 mins Volume: 200 ml; Route: ld1 IVPB; Infused Over: 60 mins; Site: left antecubital; 17:12 Follow up: Response: No adverse reaction; IV Status: Completed infusion; IV Intake: ld1 200ml 15:32 Drug: metroNIDAZOLE IVPB 500 mg 100 ml IVPB at 200 ml/hr once over 30 mins Volume: 100 ld1 ml; Route: IVPB; Rate: 200 ml/hr; Infused Over: 30 mins; Site: left antecubital; 17:12 Follow up: Response: No adverse reaction; IV Status: Completed infusion; IV Intake: ld1 100ml Medication: 17:13 VIS not applicable for this client. ld1 Intake: 17:12 IV: 100ml; Total: 100ml. ld1 17:12 IV: 200ml; Total: 300ml. ld1 17:13 IV: 500ml; Total: 800ml. ld1 17:13 IV: 500ml; Total: 1300ml. ld1 Outcome: 16:43 Discharge ordered by . jose 17:11 Discharged to home ambulatory, ld1 17:11 Condition: stable 17:11 Discharge instructions given to patient, Instructed on discharge instructions, follow up and referral plans. medication usage, Demonstrated understanding of instructions, follow-up care, medications, Prescriptions given X 1, 17:13 Patient left the ED. ld1 Signatures: Dispatcher [employer] EDFrank Lopez MD MD cha Sims, Lauren RN RN ld1 Aury Gonzalez RN RN cm10 Dianna Perez ra3
--- NOTE | 2024-11-18 16:44 | EDPHYS ---
Physician Documentation [facility] Name: Ludin Monreal Age: 69 yrs Sex: Male : 1955 Arrival Date: 11/18/2024 Time: 11:15 Bed 9 Private MD: ED Physician Frank Thompson HPI: 11/18 16:32 This 69 yrs old Male presents to ER via Ambulatory with complaints of jose Hemorrhoids. 16:32 The patient presents with abdominal pain rectal. Onset: The symptoms/episode jose began/occurred this morning, today. The symptoms do not radiate. Associated signs and symptoms: none. The symptoms are described as crampy. Modifying factors: The symptoms are alleviated by nothing, the symptoms are aggravated by nothing. Severity of pain: At its worst the pain was mild in the emergency department the pain is unchanged. Historical: - Allergies: 11:52 No Known Allergies; cm10 - Home Meds: 11:52 Brilinta 90 mg oral tablet 1 tab 2 times per day [Active]; cm10 11:53 metformin 1,000 mg Oral tablet 1 tab 2 times per day [Active]; glipizide 10 mg Oral cm10 tablet 2 times per day [Active]; potassium chloride 20 mEq Oral Tablet, ER Particles/Crystals daily [Active]; magnesium oxide 400 mg magnesium Oral tablet daily [Active]; sotalol 80 mg Oral tablet 2 times per day [Active]; metoprolol tartrate 50 mg Oral tablet 2 times per day [Active]; losartan 25 mg oral tablet daily [Active]; amlodipine 5 mg tablet 2 times per day [Active]; spironolactone 25 mg Oral tablet daily [Active]; rosuvastatin 10 mg oral tablet daily [Active]; aspirin 81 mg Oral capsule [Active]; Farxiga 10 mg oral tablet 1 tab daily [Active]; escitalopram oxalate 10 mg oral tablet 1 tab daily [Active]; - PMHx: 11:52 Atrial fibrillation; diabetes mellitus; Hypercholesterolemia; Hypertensive disorder; cm10 Myocardial infarction; Prostate Cancer; - PSHx: 11:52 prostatectomy; Stented artery; cm10 - Immunization history:: Adult Immunizations up to date. - Infectious Disease History:: Denies. - Social history:: Smoking status: Patient denies any tobacco usage or history of. - Family history:: not pertinent. ROS: 16:36 Constitutional: Negative for fever, chills, and weight loss, Eyes: Negative for injury, jose pain, redness, and discharge, ENT: Negative for injury, pain, and discharge, Neck: Negative for injury, pain, and swelling, Cardiovascular: Negative for chest pain, palpitations, and edema, Respiratory: Negative for shortness of breath, cough, wheezing, and pleuritic chest pain, Back: Negative for injury and pain, : Negative for injury, bleeding, discharge, and swelling, MS/Extremity: Negative for injury and deformity, Skin: Negative for injury, rash, and discoloration, Neuro: Negative for headache, weakness, numbness, tingling, and seizure, Psych: Negative for depression, anxiety, suicide ideation, homicidal ideation, and hallucinations, Allergy/Immunology: Negative for hives, rash, and allergies, Endocrine: Negative for neck swelling, polydipsia, polyuria, polyphagia, and marked weight changes, Hematologic/Lymphatic: Negative for swollen nodes, abnormal bleeding, and unusual bruising, 16:36 Abdomen/GI: Positive for abdominal pain, rectal pain, rectal bleeding, Exam: 16:36 Constitutional: This is a well developed, well nourished patient who is awake, alert, jose and in no acute distress. Head/Face: Normocephalic, atraumatic. Eyes: Pupils equal round and reactive to light, extra-ocular motions intact. Lids and lashes normal. Conjunctiva and sclera are non-icteric and not injected. Cornea within normal limits. Periorbital areas with no swelling, redness, or edema. ENT: Nares patent. No nasal discharge, no septal abnormalities noted. Tympanic membranes are normal and external auditory canals are clear. Oropharynx with no redness, swelling, or masses, exudates, or evidence of obstruction, uvula midline. Mucous membranes moist. Neck: Trachea midline, no thyromegaly or masses palpated, and no cervical lymphadenopathy. Supple, full range of motion without nuchal rigidity, or vertebral point tenderness. No Meningismus. Chest/axilla: Normal chest wall appearance and motion. Nontender with no deformity. No lesions are appreciated. Cardiovascular: Regular rate and rhythm with a normal S1 and S2. No gallops, murmurs, or rubs. Normal PMI, no JVD. No pulse deficits. Respiratory: Lungs have equal breath sounds bilaterally, clear to auscultation and percussion. No rales, rhonchi or wheezes noted. No increased work of breathing, no retractions or nasal flaring. Back: No spinal tenderness. No costovertebral tenderness. Full range of motion. Male : Normal genitalia with no discharge or lesions. Skin: Warm, dry with normal turgor. Normal color with no rashes, no lesions, and no evidence of cellulitis. MS/ Extremity: Pulses equal, no cyanosis. Neurovascular intact. Full, normal range of motion., bilateral aka Neuro: Awake and alert, GCS 15, oriented to person, place, time, and situation. Cranial nerves II-XII grossly intact. Motor strength 5/5 in all extremities. Sensory grossly intact. Cerebellar exam normal. Normal gait. Psych: Awake, alert, with orientation to person, place and time. Behavior, mood, and affect are within normal limits. 16:36 Abdomen/GI: Inspection: abdomen appears normal, Rectal exam: Prostate: normal, rectal tone normal, Stool: no melena , blood only in diaper, Liver: no appreciated palpable abnormalities, Hernia: not appreciated, Vital Signs: 11:51 BP 155 / 89; Pulse 79; Resp 15; Temp 98.4(O); Pulse Ox 98% on R/A; Weight 88.9 kg; cm10 Height 5 ft. 10 in. ; Pain 0/10; 15:03 BP 149 / 84; Pulse 76; Resp 18; Pulse Ox 100% on R/A; Pain 8/10; ld1 16:09 BP 162 / 74; Pulse 88; Resp 18; Pulse Ox 100% on R/A; ld1 17:12 BP 155 / 76; Pulse 84; Resp 18; Pulse Ox 100% on R/A; ld1 11:51 Body Mass Index 28.12 (88.90 kg, 177.8 cm) cm10 11:51 Pain Scale: Adult cm10 15:03 Pain Scale: Adult ld1 MDM: 11:27 Medical Screening Exam initiated [facility] 12:27 Medical Screening Exam initiated [facility] 16:39 Differential diagnosis: diverticulitis, gastritis, GI Bleed, non-specific abd pain, jose pancreatitis, Peptic Ulcer Disease, Perf. Duodenal Ulcer, Perf. Gastric Ulcer, Ureterolithiasis, urinary tract infection. Data reviewed: vital signs, nurses notes, lab test result(s), EKG, radiologic studies, CT scan. Consideration of Admission/Observation Escalation of care including admission/observation considered. I considered the following discharge prescriptions or medication management in the emergency department Medications were administered in the Emergency Department. See MAR. Independent interpretation of the following test(s) in the Emergency Department CT Scan: My interpretation is ct abd / pel. Historians other than the Patient: pt well informed. 11/18 11:31 Order name: Basic Metabolic Panel; Complete Time: 15:52 [facility] 11/18 11:31 Order name: CBC with Diff; Complete Time: 15:52 [facility] 11/18 11:31 Order name: LFT's; Complete Time: 15:52 [facility] 11/18 11:31 Order name: Magnesium; Complete Time: 15:52 [facility] 11/18 11:31 Order name: NT PRO-BNP; Complete Time: 15:52 [facility] 11/18 11:31 Order name: PT-INR; Complete Time: 15:52 [facility] 11/18 11:31 Order name: Troponin HS; Complete Time: 15:52 [facility] 11/18 11:31 Order name: Lipase; Complete Time: 15:52 [facility] 11/18 11:31 Order name: Urinalysis w/ reflexes; Complete Time: 15:52 [facility] 11/18 11:31 Order name: Type And Screen; Complete Time: 15:52 [facility] 11/18 11:46 Order name: Chest Single View; Complete Time: 15:52 [facility] 11/18 12:19 Order name: Abdomen ; Complete Time: 16:28 [facility] 11/18 11:31 Order name: IV Saline Lock; Complete Time: 14:40 [facility] 11/18 11:31 Order name: Labs collected and sent; Complete Time: 14:40 [facility] 11/18 11:31 Order name: O2 Per Protocol; Complete Time: 14:17 [facility] 11/18 11:31 Order name: O2 Sat Monitoring; Complete Time: 14:17 [facility] Administered Medications: 15:32 Drug: NS 0.9% IV 500 ml IV at bolus once; to be given as a bolus over 30 minutes Route: ld1 IV; Rate: bolus; Site: left antecubital; 17:13 Follow up: Response: No adverse reaction; IV Status: Completed infusion; IV Intake: ld1 500ml 15:32 Drug: NS 0.9% IV 500 ml 500 ml IV at 125 ml/hr once Volume: 500 ml; Route: IV; Rate: ld1 125 ml/hr; Site: left antecubital; 17:13 Follow up: Response: No adverse reaction; IV Status: Completed infusion; IV Intake: ld1 500ml 15:32 Drug: Ciprofloxacin IVPB 400 mg 200 ml IVPB once over 60 mins Volume: 200 ml; Route: ld1 IVPB; Infused Over: 60 mins; Site: left antecubital; 17:12 Follow up: Response: No adverse reaction; IV Status: Completed infusion; IV Intake: ld1 200ml 15:32 Drug: metroNIDAZOLE IVPB 500 mg 100 ml IVPB at 200 ml/hr once over 30 mins Volume: 100 ld1 ml; Route: IVPB; Rate: 200 ml/hr; Infused Over: 30 mins; Site: left antecubital; 17:12 Follow up: Response: No adverse reaction; IV Status: Completed infusion; IV Intake: ld1 100ml Disposition Summary: 11/18/24 16:43 Discharge Ordered Notes: Location: Home jose Problem: new jose Symptoms: have improved jose Condition: Stable jose Diagnosis - Other hemorrhoids - bleed jose - GI Bleed/ Gastrointestinal hemorrhage, unspecified - lower jose - Diverticulosis of large intestine without perforation or abscess with bleeding jose - USP (current) use of anticoagulants - aspirin, berlinta jose Followup: jose - With: Private Physician - When: 2 - 3 days - Reason: Recheck today's complaints, Continuance of care, Re-evaluation by your physician Followup: jose - With: Lucas Rocha MD - When: 2 - 3 days - Reason: Recheck today's complaints, Re-evaluation by your physician Discharge Instructions: - Discharge Summary Sheet jose - High-Fiber Eating Plan jose - Diverticulosis jose - Gastrointestinal Bleeding jose - Hemorrhoids jose - Rectal Bleeding jose - How to Take a Sitz Bath jose - Hemorrhoids, [id number] jose - Rectal Bleeding, [id number] jose - Bleeding Precautions When on Anticoagulant Therapy, Adult jose Forms: - Medication Reconciliation Form jose - Antibiotic Education jose - Prescription Opioid Use jose - Patient Portal Instructions jose - Leadership Thank You Letter jose Prescriptions: - Colace 100 mg Oral Tablet - take 1 tablet ORAL route every 12 hours; 14 tablet; Refills: 0, Product jose Selection Permitted - Flagyl 500 mg Oral tablet - take 1 tablet ORAL route every 6 hours for 7 days; 28 tablet; Refills: 0, jose Product Selection Permitted - Cipro 500 mg Oral Tablet - take 1 tablet ORAL route every 12 hours for 7 days; 14 tablet; Refills: 0, jose Product Selection Permitted Signatures: Dispatcher [employer] EDFrank Lopez MD MD cha Sims, Lauren, RN RN ld1 Aury Gonzalez RN RN cm10 Corrections: (The following items were deleted from the chart) 11:32 11:32 Chest Single View+RAD.RAD.BRZ ordered. [facility] EDMS 11:32 11:32 Abdomen Pelvis W Con+CT.RAD.BRZ ordered. [facility] EDNE 14:25 11:31 Cardiac monitoring ordered. [facility] 14:25 11:31 EKG - Nurse/Tech ordered. [facility] ld1
[2024-11-21 01:32] VITALS: BP 155/76; TEMP 98.4; O2SAT 100
== END 2024-11-18 17:13 | disposition home or self-care (01) ==
LOC: ER 11:15
DX: K64.8 Other hemorrhoids (principal); K57.30 Diverticulosis of large intestine without perforation or abscess without bleeding; Z79.01 Long term (current) use of anticoagulants; E11.9 Type 2 diabetes mellitus without complications; I10 Essential (primary) hypertension; I48.91 Unspecified atrial fibrillation
CPT/HCPCS: 96365; 96368; 85025; 81001; 80048; 36415; 86900; 83735; 86850; 85610; 86901; 80076; 84484; 83690; 83880; 74177; 71045; 99284; 96366; Q9967; J0744; J7030